=== PATIENT | male | born 1935 | race Caucasian/White ===

== ENCOUNTER 2018-03-14 13:23 | Inpatient (IN) | payer MEDICARE ==
[~2018-03-14] VITALS: Ht 182.9 cm; Wt 93.9 kg
[~2018-03-14 13:23] MED LIST: Z REMERON PO; Z.0.ATENOLOL25 MG PO; Z.0.ATIVAN1 MG PO; Z.0.CRESTOR40 MG PO; Z.0.ZESTRIL5 MG PO; Z.0.ZOLOFT100 MG PO; [UNRECOGNIZED DRUG - OTHER] PO
[2018-03-14] MEDS ORDERED: ASPIRIN 81 MG CHEW TAB PO ONE (14:00)
--- NOTE | 2018-03-14 15:19 | Diagnostic Imaging Report ---
EXAMINATION: CHEST SINGLE (NOT PORTABLE) INDICATION: Chest pain. COMPARISON: Chest radiograph 07/20/2011. FINDINGS: TUBES and LINES: None. LUNGS: Mild patchy bibasilar opacities. No evidence of pulmonary edema. PLEURA: No pleural effusion or pneumothorax. HEART AND MEDIASTINUM: The cardiomediastinal silhouette is unremarkable. BONES AND SOFT TISSUES: No acute osseous lesion. Soft tissues are unremarkable. UPPER ABDOMEN: No free air under the diaphragm. IMPRESSION: Mild patchy bibasilar opacities, likely atelectasis. No evidence of pneumothorax. Signed by: Dr. Viraj Cervantes MD on 03/14/2018 3:16 PM
[2018-03-14 16:06] LABS: EOSINOPHILS # (AUTO) 0.3 (0.0-0.4); EOSINOPHILS % 8.4 % (0.0-6.0); LYMPHOCYTES # (AUTO) 0.4 (1.0-3.2); LYMPHOCYTES % 14.1 % (18.0-39.1); MEAN CORPUSCULAR HEMOGLOBIN 31.7 pg (28-32); MEAN CORPUSCULAR HGB CONC 32.4 g/dL (31-35); MEAN CORPUSCULAR VOLUME 98.1 fL (81-99); MONOCYTES # (AUTO) 0.4 (0.2-0.8); MONOCYTES % 14.8 % (4.4-11.3); NEUTROPHILS # (AUTO) 1.8 (2.1-6.9); PLATELET COUNT 101 x10e3/uL (140-360); RED BLOOD COUNT 2.08 x10e6/uL (4.3-5.7); RED CELL DISTRIBUTION WIDTH 17.3 % (11.7-14.4)
[2018-03-14 16:13] LABS: HEMOGLOBIN 6.6 g/dL (14.0-18.0)
[2018-03-14 16:14] LABS: HEMATOCRIT 20.4 % (38.2-49.6)
[2018-03-14 16:17] LABS: BILIRUBIN,URINE NEGATIVE (NEGATIVE); CLARITY,URINE CLEAR (CLEAR); COLOR,URINE STRAW (YELLOW); KETONES,URINE NEGATIVE (NEGATIVE); LEUKOCYTE ESTERASE ,URINE NEGATIVE (NEGATIVE); NITRITE,URINE NEGATIVE (NEGATIVE); PROTEIN,URINE DIPSTICK 1+ (NEGATIVE); URINE UROBILINOGEN 0.2 mg/dL (0.2 - 1)
[2018-03-14 16:24] LABS: INR 1.06; PROTHROMBIN TIME 14.8 seconds (11.9-14.5)
[2018-03-14 16:25] LABS: PARTIAL THROMBOPLASTIN TIME 31.5 seconds (23.8-35.5)
[2018-03-14 16:32] LABS: ALBUMIN/GLOBULIN RATIO 1.1 (0.8-2.0); CALCIUM 8.7 mg/dL (8.4-10.2); CREATININE, SERUM 5.28 mg/dL (0.72-1.25)
[2018-03-14 16:39] LABS: CREATINE KINASE MB 2.6 ng/mL (0-5.0)
[2018-03-14 16:41] LABS: AMORPHOUS SEDIMENT,URINE FEW (FEW)
[2018-03-14] MEDS ORDERED: FUROSEMIDE INJ 10 MG/ML 2 ML VIAL IV ONE (16:45)
[2018-03-14] MEDS ORDERED: SODIUM CHLORIDE 0.9% 250ML 250 ML IV ONE (16:45)
--- NOTE | 2018-03-14 17:30 | NUR ---
RECEIVED REPORT FROM CHARGE NURSE TO ASSUME PTS CARE.
[2018-03-14] MEDS ORDERED: ONDANSETRON HCL INJ 2MG/ML 2ML 2 MG/ML VIAL IV PRN (17:45)
[2018-03-14] MEDS ORDERED: SODIUM BICARBONATE 8.4% SYRING 150 ML in DEXTROSE 5% 1,000 ML IV ONE (17:45)
[2018-03-14] MEDS ORDERED: FUROSEMIDE INJ 10 MG/ML 10 ML VIAL IV ONE (18:00)
--- OUTSIDE RECORDS SUMMARY | 2018-03-14 20:29 | XMS REPORT ---
Author Author [facility] Address Unknown Phone Unavailable Care Team Providers Care Meeting/Event Planner Name Role Phone Viry MYERS Unavailable Unavailable Problems This patient has no known problems. Allergies, Adverse Reactions, Alerts This patient has no known allergies or adverse reactions. Medications This patient has no known medications. Results Test Description Test Time Test Comments Text Results Atomic Results Result Comments CHEST SINGLE (NOT PORTABLE) 2018-03-14 15:13:00 [place] [address] Patient Name: CASSIDY KEBEDE MR #: [id number] : 1935 Age/Sex: 82/M Req #: [id number] Adm Physician: Ordered by: APSCUAL MYERS MD Report #: [id number] Location: ER Room/Bed: Procedure: [id number] DX/CHEST SINGLE (NOT PORTABLE) Exam Date: 03/14/18 Exam Time: 1419 REPORT STATUS: Signed EXAMINATION: CHEST SINGLE (NOT PORTABLE) INDICATION: Chest pain. COMPARISON: Chest radiograph 07/20/2011. FINDINGS: TUBES and LINES: None. LUNGS: Mild patchy bibasilar opacities. No evidence of pulmonary edema. PLEURA: No pleural effusion or pneumothorax. HEART AND MEDIASTINUM: The cardiomediastinal silhouette is unremarkable. BONES AND SOFT TISSUES: No acute osseous lesion. Soft tissues are unremarkable. UPPER ABDOMEN: No free air under the diaphragm. IMPRESSION: Mild patchy bibasilar opacities, likely atelectasis. No evidence of pneumothorax. Signed by: Dr. Danielle Boone MD on 03/14/2018 3:16 PM Dictated By: DANIELLE BOONE MD [id number] Transcribed By: RASHI on 03/14/18 [id number] COPY TO: PASCUAL MYERS MD
[2018-03-14] MEDS ORDERED: LOSARTAN POTASS25 MG PO (20:34)
[2018-03-14] MEDS ORDERED: LEVOCETIRIZINE D5 MG PO (20:34)
[2018-03-14] MEDS ORDERED: NIFEDIAC CC60 MG PO (20:34)
[2018-03-14] MEDS ORDERED: HYDRALAZINE HCL25 MG PO (20:35)
[2018-03-14] MEDS ORDERED: METOPROLOL SUCC25 MG PO (20:38)
[2018-03-14] MEDS ORDERED: FUROSEMIDE INJ 10 MG/ML 4 ML VIAL ONE (20:44)
--- NOTE | 2018-03-14 20:44 | NUR ---
[facility]LE ADF CONSULTANT INFORMED OF ELEVATED BP. ORDERED TO GIVE LASIX 100MG NOW.
[2018-03-14] MEDS ORDERED: FUROSEMIDE INJ 10 MG/ML 2 ML VIAL ONE (20:45)
[2018-03-14 20:47] LABS: EOSINOPHILS % (MANUAL) 10 % (0-7); LYMPHOCYTES % (MANUAL) 10 % (19-48); MONOCYTES % (MANUAL) 8 % (3.4-9.0); NEUTROPHILS % (MANUAL) 72 % (40-74)
[2018-03-14 20:56] LABS: HYPOCHROMASIA SLIGHT; PLATELET ESTIMATE ADEQUATE; PLATELET MORPHOLOGY COMMENT NORMAL; POIKILOCYTOSIS SLIGHT; RBC MORPHOLOGY COMMENT ABNORMAL
[2018-03-14 20:58] LABS: ANISOCYTOSIS MODERATE
[2018-03-14] MEDS ORDERED: SODIUM CHLORIDE 0.9% 250ML 250 ML ONE (20:59)
--- NOTE | 2018-03-14 22:15 | NUR ---
DR COLBY PAGED REGARDING BLOOD PRESSURE.
[2018-03-14] MEDS ORDERED: HYDRALAZINE HCL 25 MG TAB PO ONE (23:15)
[2018-03-14] MEDS ORDERED: NIFEDIPINE CR 30 MG TAB PO ONE (23:15)
[2018-03-15 06:18] LABS: EOSINOPHILS # (AUTO) 0.3 (0.0-0.4); EOSINOPHILS % 8.1 % (0.0-6.0); HEMATOCRIT 21.1 % (38.2-49.6); LYMPHOCYTES # (AUTO) 0.5 (1.0-3.2); LYMPHOCYTES % 14.3 % (18.0-39.1); MEAN CORPUSCULAR HEMOGLOBIN 31.4 pg (28-32); MEAN CORPUSCULAR HGB CONC 33.2 g/dL (31-35); MEAN CORPUSCULAR VOLUME 94.6 fL (81-99); MONOCYTES # (AUTO) 0.6 (0.2-0.8); MONOCYTES % 16.4 % (4.4-11.3); NEUTROPHILS % 59.7 % (38.7-80.0); PLATELET COUNT 69 x10e3/uL (140-360); RED BLOOD COUNT 2.23 x10e6/uL (4.3-5.7); RED CELL DISTRIBUTION WIDTH 16.2 % (11.7-14.4)
[2018-03-15 06:33] LABS: INR 1.13; PROTHROMBIN TIME 15.5 seconds (11.9-14.5)
[2018-03-15 06:34] LABS: PARTIAL THROMBOPLASTIN TIME 37.4 seconds (23.8-35.5)
[2018-03-15 06:44] LABS: ANION GAP 16.3 mmol/L (8-16); CALCIUM 8.3 mg/dL (8.4-10.2); CREATININE, SERUM 4.9 mg/dL (0.72-1.25); POTASSIUM 4.3 mmol/L (3.5-5.1)
[2018-03-15 07:29] LABS: EOSINOPHILS % (MANUAL) 10 % (0-7); LYMPHOCYTES % (MANUAL) 18 % (19-48); MONOCYTES % (MANUAL) 14 % (3.4-9.0); NEUTROPHILS % (MANUAL) 58 % (40-74); PLATELET ESTIMATE MARKEDLY DECREASED; RBC MORPHOLOGY COMMENT ABNORMAL
[2018-03-15] MEDS ORDERED: DEXTROSE 50% SYRINGE 50 ML IV PRN (07:30)
[2018-03-15] MEDS ORDERED: FUROSEMIDE INJ 10 MG/ML 2 ML VIAL IV ONE (10:00)
[2018-03-15] MEDS ORDERED: SODIUM CHLORIDE 0.9% 250ML 250 ML ONE ×2 (10:17→16:38)
[2018-03-15] MEDS: INSULIN REGULAR, HUMAN 100 UNIT/1 ML 3ML VIAL SQ SCH ×4 (10:17→20:57)
[2018-03-15] MEDS: METOPROLOL SUCCINATE 25 MG TAB XL PO SCH (10:28)
[2018-03-15] MEDS: HYDRALAZINE HCL 25 MG TAB PO SCH ×3 (10:28→21:04)
[2018-03-15] MEDS: NIFEDIPINE CR 30 MG TAB PO SCH (10:29)
--- NOTE | 2018-03-15 11:25 | NUR ---
2ND UNIT OF BLOOD STARTED. V.S.S.
[2018-03-15 11:51] LABS: PHOSPHORUS 6.8 MG/DL (2.3-4.7)
[2018-03-15 12:01] LABS: % IRON SATURATION 70 % (15-50); IRON 157 ug/dL (65-175); TOTAL IRON BINDING CAPACITY 224 ug/dL (261-478); TRANSFERRIN 160 mg/dL (174-364)
[2018-03-15 12:13] LABS: FERRITIN 435.43 ng/mL (21.81-274.66); THYROID STIMULATING HORMONE 2.636 uIU/mL (0.350-4.940)
--- NOTE | 2018-03-15 12:33 | History and Physical ---
PRIMARY CARE PHYSICIAN: Dr. Pam Andrade. CHIEF COMPLAINT 1. Shortness of breath both at rest and increased in intensity on exertion. 2. Chronic kidney disease with acute kidney failure. 3. Uremia. HISTORY: Patient is an 82-year-old male who has history of prostate disease. The patient has prostate enlargement. He had multiple procedures, the last was TURP procedure with Dr. Marv Hernandez. Patient came in with urinary retention, most likely per patient that when they put in the Savage catheter, the patient had significant urine output. Patient's BUN and creatinine on admission was 107 and 5.3 respectively with a hemoglobin of 6.6. Patient did receive blood transfusion. He is feeling better. Shortness of breath improved as patient remained in the emergency room awaiting for a medical bed. Patient's hemoglobin and hematocrit today is 7 and 21.1. Patient is otherwise stable. Blood transfusion this morning and a BUN and creatinine of 101 and 4.9 respectively. The patient does have a Savage catheter in place. He is comfortable, not having any pain at this time. PAST MEDICAL HISTORY: Chronic kidney disease, stage not known at this time. Workup in progress. Diabetes type 2, on glipizide and metformin. Hypertension, osteoarthritis, depression. PAST SURGICAL HISTORY: Prostate surgery, TURP procedure. SOCIAL HISTORY: Patient lives with his . He does not smoke or use alcohol. There is no recreational drug use. ALLERGIES: NO KNOWN ALLERGIES. HOME MEDICATIONS: Glipizide, metformin, hydralazine, Zyrtec, lorazepam, losartan, metoprolol, Remeron, nifedipine, and Zoloft. PHYSICAL EXAMINATION VITAL SIGNS: Temperature is 98, blood pressure 166/70, pulse rate 72, respirations 18. GENERAL: Patient is in no acute distress. He is awake. HEENT: Normocephalic, atraumatic. Sclerae anicteric. NECK: Supple grossly. PULMONARY: Clear. CARDIOVASCULAR: Regular rate and rhythm. ABDOMEN: Soft and obese. Savage catheter in place. EXTREMITIES: No cyanosis or edema. NEUROLOGIC: No focal deficit. LABORATORY: Sodium is 135, potassium 5, chloride 113, bicarb 9, BUN is 107, creatinine is 5.3, glucose is 197. WBC is 2.9, hemoglobin 6.6, hematocrit 20.4, platelets 101. IMPRESSION 1. Acute kidney injury on chronic kidney disease. 2. Symptomatic anemia. Hemoglobin and hematocrit of 6.6 and 20.4. 3. Metabolic acidosis. Combination of problems as mentioned above. 4. Pancytopenia with low white blood count, platelets, hemoglobin and hematocrit. 5. History of transurethral resection of prostate and enlarged prostate. 6. Possible urinary retention. PLAN: Blood transfusion. Blood pressure control. Home medication with adjustment. Stop the metformin and glipizide for now. Insulin sliding scale coverage. Repeated lab workup. We will monitor the patient closely. Job#: [id number] LPA cc:PAM ANDRADE MD
[2018-03-15 12:36] LABS: FOLATE 18.3 ng/mL (7.0-15.4)
--- NOTE | 2018-03-15 12:43 | Consultation ---
DATE OF CONSULTATION: March 15, 2018 REQUESTING PHYSICIAN: Dr. Ge Younger. REASON FOR CONSULTATION: Acute kidney injury. Thank you for allowing us to participate in Mr. Slaughter's care. This is an 82-year-old male with history of CKD, presumed nephrosclerosis and diabetic end-organ damage. Baseline creatinine is 1.82 to 1.9, which has been relatively stable for several months at this point, came with worsening dyspnea, found to have elevated creatinine in the 5 range. Chest x-ray was clear. His hemoglobin was markedly decreased at 6.6. He was hypertensive at admission. He is feeling better since getting blood transfusion in the ER. PAST MEDICAL HISTORY: CKD 3, type 2 diabetes and hypertension, end-organ damage, baseline creatinine 1.8 to 1.9, dyslipidemia. HOME MEDICATIONS: Glipizide/metformin 5/500, hydralazine 25 mg t.i.d., levocetirizine, lorazepam 1 mg b.i.d., losartan 100 mg a day, metoprolol 25 mg a day, Remeron 30 mg at bedtime, nifedipine 60 a day, and sertraline 100 mg a day. SOCIAL HISTORY: Denies any alcohol or smoke. FAMILY HISTORY: No kidney problems or hypertension presently. REVIEW OF SYSTEMS CONSTITUTIONAL: No fever or chills. He felt weak. GI: Denying any blood loss in the stools or any hematemesis. CARDIAC: Denying angina or syncope. RESPIRATORY: Denying cough or hemoptysis. He was dyspneic that is improving. : Denying any hematuria, dysuria, or trouble voiding. Rest of review is negative. PHYSICAL EXAMINATION GENERAL: Lying in bed, no distress. VITAL SIGNS: Temperature is 98, pulse 74, blood pressure 153/72. HEENT: Grossly atraumatic. NECK: Neck veins are flat. CHEST: Clear. Bilateral breath sounds are equal. CARDIAC: Normal heart tones. Rhythm sounds regular. ABDOMEN: Soft. There is guarding, rigidity, or peritoneal signs. NEURO: Alert, appropriate. SKIN: Warm and dry. LABS: Sodium 139, K 4.3, serum CO2 of 13, creatinine is 4.9 down from 5.2, BUN is coming down. Chest x-ray is clear other than minimal atelectasis. ASSESSMENT 1. Acute kidney injury probably prerenal azotemia from the blood loss/decreased hemoglobin UNDERLYING chronic kidney disease. 2. Anemia appears normocytic. 3. Metabolic acidosis from decreased glomerular filtration rate. 4. Consider obstruction if he does have a Savage and voiding. PLAN 1. From renal standpoint, started on IV bicarbonate. Continue the same. 2. We will transfuse 2 more units of packed cells. 3. Hold the angiotensin receptor carie. 4. Check renal ultrasound and urine studies. 5. Check iron studies. 6. No emergent need for dialysis. 1. Will follow along with you. Job#: [id number] BALJINDER GROVES
--- NOTE | 2018-03-15 13:51 | NUR ---
BLOOD TX COMPLETE
[2018-03-15 14:44] VITALS: BP 144/80
[2018-03-15 15:00] VITALS: BP 154/70
[2018-03-15 15:28] VITALS: BP 154/70
[2018-03-15] MEDS ORDERED: PNEUMOCOCCAL VACCINE POLYVALENT 23 MCG/0.5 ML VIAL IM NR (16:00)
[2018-03-15] MEDS ORDERED: FUROSEMIDE INJ 10 MG/ML 2 ML VIAL ONE (16:38)
[2018-03-15 19:00] VITALS: BP 165/80
[2018-03-15 22:04] VITALS: BP 170/77
[2018-03-15 23:47] VITALS: BP 151/70
[2018-03-16] VITALS (8 sets, daily range): BP systolic 138–178; BP diastolic 70–84
[2018-03-16 05:36] LABS: BASOPHILS % 0.1 % (0.0-1.0); EOSINOPHILS # (AUTO) 0.3 (0.0-0.4); EOSINOPHILS % 4.2 % (0.0-6.0); HEMATOCRIT 29.3 % (38.2-49.6); HEMOGLOBIN 10.1 g/dL (14.0-18.0); LYMPHOCYTES # (AUTO) 0.5 (1.0-3.2); LYMPHOCYTES % 7.3 % (18.0-39.1); MEAN CORPUSCULAR HEMOGLOBIN 31.4 pg (28-32); MEAN CORPUSCULAR HGB CONC 34.5 g/dL (31-35); MONOCYTES # (AUTO) 1.3 (0.2-0.8); MONOCYTES % 18.1 % (4.4-11.3); NEUTROPHILS # (AUTO) 4.9 (2.1-6.9); NEUTROPHILS % 69.7 % (38.7-80.0); PLATELET COUNT 62 x10e3/uL (140-360); RED BLOOD COUNT 3.22 x10e6/uL (4.3-5.7); RED CELL DISTRIBUTION WIDTH 15.5 % (11.7-14.4)
[2018-03-16 05:53] LABS: ANION GAP 16.7 mmol/L (8-16); CALCIUM 8.3 mg/dL (8.4-10.2); CREATININE, SERUM 4.56 mg/dL (0.72-1.25); POTASSIUM 3.7 mmol/L (3.5-5.1)
[2018-03-16] MEDS: INSULIN REGULAR, HUMAN 100 UNIT/1 ML 3ML VIAL SQ SCH ×4 (07:30→20:43)
[2018-03-16 08:49] LABS: EOSINOPHILS % (MANUAL) 5 % (0-7); LYMPHOCYTES % (MANUAL) 7 % (19-48); MONOCYTES % (MANUAL) 10 % (3.4-9.0); NEUTROPHILS % (MANUAL) 78 % (40-74); PLATELET ESTIMATE MODERATELY DECREASED; PLATELET MORPHOLOGY COMMENT NORMAL; RBC MORPHOLOGY COMMENT NORMAL
[2018-03-16] MEDS: HYDRALAZINE HCL 25 MG TAB PO SCH ×3 (09:30→20:44)
[2018-03-16] MEDS: METOPROLOL SUCCINATE 25 MG TAB XL PO SCH (09:30)
[2018-03-16] MEDS: NIFEDIPINE CR 30 MG TAB PO SCH (09:30)
--- NOTE | 2018-03-16 18:38 | Progress Note ---
DATE: March 16, 2018 NEPHROLOGY PROGRESS NOTE SUBJECTIVE: Mr. Slaughter feels better today. He had no specific complaints except for his anxiety as he has not received his anxiolytic and antidepressant yet. Otherwise, he denied any shortness of breath, chest pain, fever, chills, masses, rashes, abdominal pain, nausea, vomiting, diarrhea, or constipation. He remains with Savage catheter. PHYSICAL EXAMINATION GENERAL: Alert, oriented, adult, obese male in no acute distress. VITAL SIGNS: Blood pressure 178/84, heart rate 78 per minute. LUNGS: Bilaterally clear to auscultation. HEART: Normal heart sounds. No additional sounds. ABDOMEN: Soft, nontender. No organomegaly. EXTREMITIES: No cyanosis, clubbing, or edema. LABORATORY FINDINGS: Noted and reviewed. Sodium 139, potassium 3.7, chloride 112, carbon dioxide 14, BUN 94, creatinine 4.56, anion gap 16.7. ASSESSMENT AND PLAN 1. Acute kidney injury on chronic kidney disease secondary to obstructive uropathy. The patient is displaying postobstructive diuresis. His BUN and creatinine are gradually improving. 2. Obstructive uropathy. The patient may possibly go home with Savage catheter to follow up with his outpatient urologist and/or urology consultation can be obtained as per the primary care physician. 3. Metabolic acidosis secondary to acute kidney injury, improving. Continue intravenous fluids. 4. Anemia, [id number]. Hematocrit and hemoglobin have improved. 5. Disposition: We will follow this patient with you. I have discussed my evaluation, assessment, and plan of care with the patient and all details in the presence of his nurse. All questions were answered to their satisfaction until they had none. Job#: [id number] LPA
[2018-03-16] MEDS: LORAZEPAM 1 MG TAB PO SCH (20:43)
[2018-03-16] MEDS: MIRTAZAPINE 15 MG TAB PO SCH (20:43)
[2018-03-17] VITALS (11 sets, daily range): BP systolic 138–184; BP diastolic 64–85
--- NOTE | 2018-03-17 07:20 | NUR ---
Report given to upcoming RN Krista,walking round done.
[2018-03-17] MEDS: METOPROLOL SUCCINATE 25 MG TAB XL PO SCH (09:02)
[2018-03-17] MEDS: HYDRALAZINE HCL 25 MG TAB PO SCH ×3 (09:02→21:42)
[2018-03-17] MEDS: SERTRALINE HCL 100 MG TAB PO SCH (09:02)
[2018-03-17] MEDS: NIFEDIPINE CR 30 MG TAB PO SCH (09:03)
[2018-03-17] MEDS: LORAZEPAM 1 MG TAB PO SCH ×2 (09:03→21:42)
[2018-03-17] MEDS: INSULIN REGULAR, HUMAN 100 UNIT/1 ML 3ML VIAL SQ SCH ×4 (09:04→21:46)
--- NOTE | 2018-03-17 13:12 | NUR ---
DR. ELIE PARTIDA CALLED BACK FOR CONSULT, MADE HIM AWARE OF BUN AND CREATININE LEVELS , PER DR. PARTIDA PATIENT IS A PATIENT OF HIS AND HAS NOT FOLLOW ED UP IN HIS OFFICE SINCE JULY.
--- NOTE | 2018-03-17 14:05 | NUR ---
RECEIVED PATIENT FROM PACU PATIENT IS ALERT AND AWAKE ORIENTED X3, VERBALIZING NEEDS, CHECKED SURGICAL SITE TO SCROTAL ARE PATIENT HAS STERI STRIPS IN PLACE WITH, SCANT BLEEDING. 4X4 GAUZES IN PLACE WITH MESH PANTIES. NO S/S OF DISTRESS.
--- NOTE | 2018-03-17 15:12 | NUR ---
Nutrition Screen Note RD Recommendation for Physician: -Add ADA to renal diet as medically appropriate (hx of T2DM) Notified EMELY Velasco Plan of Care: RD following, monitoring for tolerance and adequacy Nutrition reason for involvement: Nutrition Risk Trigger MST Primary Diagnose(s): 1.Acute kidney injury on chronic kidney disease 2.Obstructive uropathy 3.Metabolic acidosis secondary to acute kidney injury, improving PMH: prostate disease, chronic kidney disease, Diabetes type 2, hypertension, osteoarthritis, depression Ht: 72in Wt: 190.04lb BMI: 25.8kg/m2 IBW: 178lb RD Assessment: (03/17) Chart reviewed. Labs and meds reviewed. 82yo M, who is admitted for SOB. Visited pt in the room. Pt reports good appetite. No GI complains noted. LBM 03/16, normal per pt. Pt denies any chewing or swallowing difficulty. No recent weight loss reported. Will continue to monitor and follow. Current Diet: Renal diet Malnutrition Evaluation (03/17/18) The patient does not meet criteria for a specified degree of malnutrition at this time. Will re-evaluate at follow-up as appropriate. Diet Education Needs Assessment: Diet education not indicated. Nutrition Care Level: low Signed: Magdalena Guzman, MS, RD, LD
--- NOTE | 2018-03-17 15:32 | NUR ---
WOUND CARE CONSULTATION - EVAL - RE: INCONTINENCE RELATED EXCORIATION Patient is a 82 year-old male admitted for SOB, CKD, ARF, Urinary Retention, Anemia, Metabolic Acidosis. He has a history of Prostate disease, TURP procedure, DM type 2, HTN, Osterarthritis, and depression. Upon head to toe assessment no wounds discovered. Patient able to ambulate and turns self. Mild erythema to the perirectal region possibly from gastric content irritation. Patient was clean and dry at time of visit but no barrier cream noted on patient. WBC: 6.98 HGB: 10.1 HCT: 29.3 Glucose: 166 RECOMMENDATION: 1. After each bowel movement wash perineal and perirectal area with mild soap and water. Pat area dry thoroughly then apply Lantiseptic Cream BID and PRN Soiling. 2. Continue AZAEL Air Mattress Use. Thank you for the consultation. Addendum: 03/17/18 at 1539 by Moshe Clarke RN Amended: Links added.
[2018-03-17] MEDS ORDERED: LANOLIN 4.5 OZ OINT TP PRN (16:00)
--- NOTE | 2018-03-17 16:31 | NUR ---
Called Dr. Lyn Watt to informed him Dr. Ora Hernandez, had called back on the consult for Mr. Slaugther, Dr. Hernandez give me orders not to remove the Savage, also made him aware per Dr. Hernandez the patient was suppose to follow up in the Dr. Hernandez's office back in July, but he is a non-compliant, he missed his appointment.
[2018-03-17] MEDS: LANOLIN 4.5 OZ OINT TP SCH (16:56)
--- NOTE | 2018-03-17 17:00 | Diagnostic Imaging Report ---
EXAM: Renal Ultrasound INDICATION: ARF. COMPARISON: CT abdomen and pelvis without contrast 02/15/2013. TECHNIQUE: Transverse and longitudinal images of the kidneys and bladder were obtained. FINDINGS: Right Kidney: Length: Measures 9.6 x 4.8 x 5.0 cm Appearance: Normal echogenicity. Collecting system: No hydronephrosis Stones: None Cyst/Mass: No evidence of solid mass. Multiple simple appearing right-sided renal cysts, largest measuring 4.1 cm in the midpole. Left Kidney: Length: Measures 11.0 x 4.2 x 5.0 cm Appearance: Normal echogenicity. Collecting system: No hydronephrosis Stones: None Cyst/Mass: No evidence of solid mass. There are two predominately anechoic appearing left-sided renal cysts in the midpole measuring up to 1.6 cm and 1.8 cm. Bladder: Decompressed secondary to Savage catheter. Incompletely evaluated. IMPRESSION: No evidence of hydronephrosis. Bilateral simple appearing renal cysts. Signed by: Dr. Viraj Cervantes MD on 03/17/2018 4:57 PM
[2018-03-17] MEDS: MIRTAZAPINE 15 MG TAB PO SCH (21:42)
[2018-03-18] VITALS (7 sets, daily range): BP systolic 125–165; BP diastolic 62–78
[2018-03-18 05:31] LABS: ANION GAP 16.2 mmol/L (8-16); CALCIUM 8.8 mg/dL (8.4-10.2); CREATININE, SERUM 4.67 mg/dL (0.72-1.25); POTASSIUM 4.2 mmol/L (3.5-5.1)
[2018-03-18 08:19] LABS: BASOPHILS % 0.1 % (0.0-1.0); EOSINOPHILS # (AUTO) 0.4 (0.0-0.4); EOSINOPHILS % 4.5 % (0.0-6.0); HEMATOCRIT 30.7 % (38.2-49.6); HEMOGLOBIN 10.1 g/dL (14.0-18.0); LYMPHOCYTES # (AUTO) 0.7 (1.0-3.2); LYMPHOCYTES % 7.5 % (18.0-39.1); MEAN CORPUSCULAR HEMOGLOBIN 31.1 pg (28-32); MEAN CORPUSCULAR HGB CONC 32.9 g/dL (31-35); MEAN CORPUSCULAR VOLUME 94.5 fL (81-99); MONOCYTES # (AUTO) 1.7 (0.2-0.8); MONOCYTES % 17.5 % (4.4-11.3); NEUTROPHILS # (AUTO) 6.8 (2.1-6.9); NEUTROPHILS % 69.8 % (38.7-80.0); PLATELET COUNT 75 x10e3/uL (140-360); RED BLOOD COUNT 3.25 x10e6/uL (4.3-5.7); RED CELL DISTRIBUTION WIDTH 15.9 % (11.7-14.4)
[2018-03-18] MEDS: LORAZEPAM 1 MG TAB PO SCH ×2 (08:36→20:57)
[2018-03-18] MEDS: SERTRALINE HCL 100 MG TAB PO SCH (08:36)
[2018-03-18] MEDS: LANOLIN 4.5 OZ OINT TP SCH ×2 (08:36→17:00)
[2018-03-18] MEDS: INSULIN REGULAR, HUMAN 100 UNIT/1 ML 3ML VIAL SQ SCH ×4 (08:44→21:42)
[2018-03-18] MEDS: NIFEDIPINE CR 30 MG TAB PO SCH (08:45)
[2018-03-18] MEDS: HYDRALAZINE HCL 25 MG TAB PO SCH ×3 (08:45→20:57)
[2018-03-18] MEDS: METOPROLOL SUCCINATE 25 MG TAB XL PO SCH (08:45)
--- NOTE | 2018-03-18 10:22 | NUR ---
LANTISEPTIC OINTMENT, NOT AVAILABLE, WILL BE IN UNTIL 03/19/17 PER GALINA IN PHARMACY. APPLYING BARRIER CREAM TO BUTTOCKS REDNESS DUE TO STOOL INCONTINENCE.
--- NOTE | 2018-03-18 11:20 | NUR ---
DR. Ora PARTIDA IN TO SEE PATIENT RECEIVED ORDERS TO D/C [place] WHEN PATIENT VOIDS COLLECT URINE AND DO A POST VOID RESIDUAL CALL DR. PARTIDA WITH THE RESULTS.
--- NOTE | 2018-03-18 12:00 | NUR ---
PLACED CALL TO RENAL DR. PORTILLO IS SUGAR MILL WORKER FOR DR. IYER WAITING FOR CALL BACK
--- NOTE | 2018-03-18 12:17 | NUR ---
DR. Louie PORTILLO CALLED BACK MADE AWARE PATIENT'S ELEVATED BLOOD PRESSURE, 165/77 HR 82, READ TO MD., BASIC METABOLIC PANEL VALUES, RECEIVED ORDERS TO ADMINISTER 1/2 NORMAL SALINE WITH 75MEQ BICARB TO INFUSE @75CC/HR, X 1 LITER, GIVE HYDRALAZINE 5 MG IVP, EVERY 6 HOURS NEEDED FOR SYSTOLIC BLOOD PRESSURE > 170. MAY GIVE A 1 TIME DOSE OF HYDRALAZINE 5MG IVP, NOW AND INCREASE HIS HYDRALAZINE PO TO 50MG THREE TIMES A DAY. TELEPHONE ORDER READ BACK.
[2018-03-18] MEDS ORDERED: SODIUM BICARBONATE 8.4% 75 ML in SODIUM CHLORIDE 0.45% 1,000 ML IV ONE ×2 (12:30→13:45)
[2018-03-18] MEDS ORDERED: HYDRALAZINE HCL 20 MG/ML VIAL IV PRN (12:30)
--- NOTE | 2018-03-18 12:31 | Consultation ---
DATE OF CONSULTATION: March 18, 2018 CONSULTATION FOR: Dr. Watt and Dr. Roly Wall. REASON FOR CONSULTATION: Renal failure, urinary retention. An 82-year-old male whom I have seen in 2018 for an enlarged prostate. The patient had been taking Proscar and Flomax and when we saw him evaluation confirmed that the patient had high residuals of over 200 with severely obstructive flow. The evaluation revealed on cystoscopy that patient had an enlarged trilobar hyperplasia. We also found that he had left lobe overgrowth into the urethra. He had a penile stricture that had to be dilated in the office that we would proceed on with evaluation to improve his flow by doing something to the prostate. At that time obtaining surgical clearance, Dr. Sotelo did not want him off his blood thinner for more than 5 days; so, therefore a urolith was planned. At that time, the patient went to the hospital, had a urolith done, had severe bleeding that needed to be taken back to surgery where fulguration was performed. The patient was seen in the office on followup. Repeat cystoscopy revealed that there was no further bleeding or clots in the bladder. There was some necrotic tissue around the prostate. This was in August 02, 2017. He was given a return appointment in 2 months for a flow test and a postvoid residual and the patient did not return to the office. Now, the history over the last couple months, he has had urge incontinence, dribbling, and small flow with frequency, probably was doing overflow which the patient apparently fell that it would be get better and never came back to see me or check with me. BUN at the present time is 94, creatinine of 4.56. Today, his BUN is 91 and his creatinine is 4.67. He has chronic renal failure now because of chronic obstruction. The patient had a ultrasound done on March 17, 2018 that showed no evidence of hydronephrosis. This may very well mean that his renal failure is not related to any acute obstruction; otherwise, he would have had hydronephrosis a that time. So, this may very well be something that cannot be repaired. We will be evaluating him when he is here. I will probably remove his catheter and check his postvoid residual while he is here. I do not believe at the present time after seeing the ultrasound that this is urinary tract obstruction because there was no hydronephrosis when the Savage had been placed in at that time when the patient came into the hospital. Job#: [id number] MICHAEL cc:FREDERICK WALL MD
[2018-03-18] MEDS ORDERED: HYDRALAZINE HCL 20 MG/ML VIAL IV ONE (13:00)
--- NOTE | 2018-03-18 17:10 | NUR ---
PLACED CALL TO DR. Ora PARTIDA NOTIFIED HIM OF PATIENT'S POST VOID RESIDUAL > 20ML AND AT 1700 GREATER THAN 13CC. RECEIVED ORDERS TO DO POST VOID RESIDUAL TOMORROW MORNING, ORDER IS IN MD NURSING COMMUNICATION.
--- NOTE | 2018-03-18 17:45 | NUR ---
TRANSFERRED PATIENT TO ROOM 205 NURSE SHAHIDA BASS HANDOFF REPORT, MADE AWARE DO POST VOID RESIDUAL IN THE MORNING WHEN PATIENT VOIDS, VERBALIZED UNDERSTANDING.
--- NOTE | 2018-03-18 18:08 | NUR ---
RCD PT FROM IMCU BY WHEEL CHAIR PT IS ALERT AND ORIENTED VITALS CHECKED PT RESTING ON BED BED LOW AND LOCKED CALL LIGHT IN REACH
--- NOTE | 2018-03-18 18:42 | NUR ---
PT RESTING ON BED BED SIDE REPORT GIVEN TO ONCOMING NURSE
[2018-03-18] MEDS: MIRTAZAPINE 15 MG TAB PO SCH (20:57)
[2018-03-19] VITALS (8 sets, daily range): BP systolic 137–164; BP diastolic 66–72
--- NOTE | 2018-03-19 06:44 | NUR ---
PVR 97 ml. Placed call to Dr. Hernandez.
[2018-03-19] MEDS ORDERED: TAMSULOSIN HCL 0.4 MG CAP PO NR (07:00)
--- NOTE | 2018-03-19 07:05 | NUR ---
RCD PT AT BED PT IS ALERT AND ORIENTED PT RESTING ON BED FAMILY AT BED SIDE BED LOW AND LOCKED CALL LIGHT IN REACH
[2018-03-19] MEDS: INSULIN REGULAR, HUMAN 100 UNIT/1 ML 3ML VIAL SQ SCH ×4 (07:30→21:47)
[2018-03-19] MEDS: METOPROLOL SUCCINATE 25 MG TAB XL PO SCH (09:00)
[2018-03-19] MEDS: NIFEDIPINE CR 30 MG TAB PO SCH (09:00)
[2018-03-19] MEDS: SERTRALINE HCL 100 MG TAB PO SCH (09:00)
[2018-03-19] MEDS: LORAZEPAM 1 MG TAB PO SCH ×2 (09:00→19:54)
[2018-03-19] MEDS: LANOLIN 4.5 OZ OINT TP SCH ×2 (09:00→17:00)
[2018-03-19] MEDS: HYDRALAZINE HCL 25 MG TAB PO SCH ×3 (09:00→19:54)
--- NOTE | 2018-03-19 11:39 | NUR ---
Sql Database Administrator to bedside to discuss plan of care with patient/family. CM/SW role and care transitions discussed. Anticipated discharge plan discussed along with duration of care. CM/SW discussed patients right to make decisions in care. CM/SW work hours given. Pt is hard of hearing and accidentally showed with his hearing aids in. Asked CM to speak to his who is at bedside. Patient lives: with , Leona Slaughter Admit/Transfer: thru ED, from home POA/Emergency contact: Leona Slaughter [phone] Current/Previous Home Health: none PCP/Follow-up Care: Dr. Alvarenga Current/Previous DME: none; pt is independent and still drives Other Services: none Employment Status: retired Areas of Concerns: NIMA/urinary retention Referral Needs: none Education Needs: medical management IMM/COSME given and signed (if applicable): none at this time Goal for discharge: home; will provide transportation. CM/SW left business card at the bedside with contact information. Name and number was also written on the patients whiteboard. Patient verbalized understanding of discussion. CM will follow-up with ongoing discharge and transition of care needs.
--- NOTE | 2018-03-19 14:00 | NUR ---
RESIDUAL URINE 19 ML PAGED AND NOTIFIED DR SHRESTHA OFFICE NURSE SHERRI
[2018-03-19] MEDS: SODIUM BICARBONATE 8.4% SYRING 100 ML in DEXTROSE 5% 1,000 ML IV SCH (14:29)
--- NOTE | 2018-03-19 18:40 | NUR ---
PT RESTING ON BED BED SIDE REPORT GIVEN TO ONCOMING NURSE
[2018-03-19] MEDS: TAMSULOSIN HCL 0.4 MG CAP PO SCH (19:54)
[2018-03-19] MEDS: MIRTAZAPINE 15 MG TAB PO SCH (19:54)
[2018-03-20] VITALS (8 sets, daily range): BP systolic 118–158; BP diastolic 57–74
[2018-03-20 05:26] LABS: ALBUMIN 3.3 g/dL (3.5-5.0); ALBUMIN/GLOBULIN RATIO 1.1 (0.8-2.0); ALKALINE PHOSPHATASE 73 IU/L (40-150); ANION GAP 17.4 mmol/L (8-16); BLOOD UREA NITROGEN 104 mg/dL (7-26); BUN/CREATININE RATIO 21 (6-25); CALCIUM 8.7 mg/dL (8.4-10.2); CARBON DIOXIDE 16 mmol/L (22-29); CHLORIDE 103 mmol/L (98-107); CREATININE, SERUM 4.88 mg/dL (0.72-1.25); EST GLOMERULAR FILTRATION RATE 11 ML/MIN (60-); GLUCOSE 224 mg/dL (74-118); POTASSIUM 3.4 mmol/L (3.5-5.1); SODIUM 133 mmol/L (136-145)
[2018-03-20 05:27] LABS: ALANINE AMINOTRANSFERASE < 6 IU/L (0-55)
[2018-03-20] MEDS: SODIUM BICARBONATE 8.4% SYRING 100 ML in DEXTROSE 5% 1,000 ML IV SCH ×2 (06:12→13:00)
[2018-03-20] MEDS: INSULIN REGULAR, HUMAN 100 UNIT/1 ML 3ML VIAL SQ SCH ×4 (07:30→21:00)
[2018-03-20] MEDS: LANOLIN 4.5 OZ OINT TP SCH ×3 (09:00→17:00)
[2018-03-20] MEDS: LORAZEPAM 1 MG TAB PO SCH ×2 (09:19→21:32)
[2018-03-20] MEDS: NIFEDIPINE CR 30 MG TAB PO SCH (09:19)
[2018-03-20] MEDS: HYDRALAZINE HCL 25 MG TAB PO SCH ×3 (09:19→21:32)
[2018-03-20] MEDS: METOPROLOL SUCCINATE 25 MG TAB XL PO SCH (09:20)
[2018-03-20] MEDS: SERTRALINE HCL 100 MG TAB PO SCH (09:21)
--- NOTE | 2018-03-20 10:44 | Progress Note ---
DATE: March 20, 2018 Today the patient is doing well, although his lab work does not look as good with a BUN of 104. He has been emptying his bladder. His PVR has been less than 50. We will check PVR again tomorrow. We will discuss that with the nurses, and they will let me know. Urine culture that I ordered revealed an enterobacter infection sensitive to Cipro. I will start him on Cipro 250 b.i.d. We will recheck his urine culture in 72 hours. I will make that order. In the meantime, I will recheck the PVR again tomorrow. So far, his ultrasound has failed to show any long-lasting hydronephrosis that may account for his elevation of his BUN and creatinine. PVR has been small, although he has an infection. I will check PVR again today myself. If his PVR is low, his loss of renal function is not due to any chronic retention producing chronic hydronephrosis, which he does not have on ultrasound when he was admitted. Job#: [id number]
--- NOTE | 2018-03-20 12:14 | Progress Note ---
DATE: March 20, 2018 MEDICINE PROGRESS NOTE SUBJECTIVE: I am covering for Dr. Watt. Patient was admitted for underlying acute kidney injury. There was some concern that he may have some hydronephrosis. I discussed this case with urology, Dr. Hernandez, and he is not convinced that the patient has any hydronephrosis. He did have a residual urine on the bladder scan, about 44 mL. He does have a UTI and he is being treated with oral Cipro. Currently he is doing well. No overnight events. Nephrology has been consulted. VITAL SIGNS: Temperature is 97.8, pulse 93, respiratory rate is 18, blood pressure 150/68, pulse ox 96% on room air. LAB FINDINGS: White count is 9.8, hemoglobin 10, hematocrit 31, platelets of 75. His coagulation: PT 15.5, PTT 37. Chemistry: Sodium 138, potassium 3.4, chloride 102, bicarb is 15, anion gap is 17, BUN is 104, creatinine 4.8, glucose is 224, calcium is 8.7. His iron saturation was 70%. Troponins were negative. His PTH is 138. Stool occult was negative. UA was reviewed. MICROBIOLOGY: Urine culture consistent with enterobacter which is sensitive to Cipro. PHYSICAL EXAMINATION GENERAL: Not in acute distress. Alert and oriented x3. Cooperative on examination. HEENT: Head is normocephalic and atraumatic. Eyes: Pupils equal, round and reactive to light bilaterally. Extraocular movements intact bilaterally. NECK: Supple. Good range of motion. Throat with no evidence of any erythema or exudates in the posterior pharynx. Has poor dentition. PULMONARY: Clear to auscultation bilaterally. No wheezing. No rales. No rhonchi. No crackles appreciated. CARDIOVASCULAR: Positive S1 and S2. No murmurs, rubs or gallops appreciated. ABDOMEN: Soft, nondistended and nontender to palpation. Bowel sounds present. MUSCULOSKELETAL: Strength is 5/5 throughout. No evidence of any musculoskeletal deficit on examination. No weakness appreciated. NEUROLOGICAL: Cranial nerves II through XII are grossly intact. No evidence of any neurological deficits on exam. SKIN: Intact. Warm to touch. Good cap refill. PSYCHIATRIC: Normal affect and mood. EXTREMITIES: No edema. Good range of motion throughout. IMPRESSIONS 1. Acute kidney injury on chronic kidney disease stage 4. 2. Symptomatic anemia, status post blood transfusion. 3. Metabolic acidosis secondary to renal failure. 4. Pancytopenia. 5. History of transurethral resection of the prostate, enlarged prostate. PLAN: At this time, I spoke with urology. There is no further workup needed by them. Nephrology is following closely with the acute kidney injury, the etiology is unknown at this time. His renal ultrasound has been reviewed. Will get a.m. labs. Continue with his antihypertensive medications. Insulin sliding scale. Patient has been started on oral Cipro 200 mg p.o. b.i.d. for underlying UTI. Job#: [id number] IRWIN
[2018-03-20] MEDS ORDERED: POTASSIUM CHLORIDE 20 MEQ TAB CR PO STA (12:36)
[2018-03-20 15:16] LABS: ANION GAP 16.6 mmol/L (8-16); CALCIUM 8.7 mg/dL (8.4-10.2); CREATININE, SERUM 4.64 mg/dL (0.72-1.25); POTASSIUM 3.6 mmol/L (3.5-5.1)
[2018-03-20] MEDS: CIPROFLOXACIN 250 MG TAB PO SCH (17:09)
[2018-03-20] MEDS: SODIUM BICARBONATE 650 MG TAB PO SCH (17:09)
[2018-03-20] MEDS: TAMSULOSIN HCL 0.4 MG CAP PO SCH (21:32)
[2018-03-20] MEDS: MIRTAZAPINE 15 MG TAB PO SCH (21:32)
[2018-03-21] VITALS (7 sets, daily range): BP systolic 109–151; BP diastolic 52–73
[2018-03-21] MEDS: SODIUM BICARBONATE 8.4% SYRING 100 ML in DEXTROSE 5% 1,000 ML IV SCH (04:30)
[2018-03-21 05:02] LABS: BASOPHILS % 0.1 % (0.0-1.0); EOSINOPHILS # (AUTO) 0.3 (0.0-0.4); EOSINOPHILS % 4.9 % (0.0-6.0); HEMATOCRIT 26.2 % (38.2-49.6); HEMOGLOBIN 8.7 g/dL (14.0-18.0); LYMPHOCYTES # (AUTO) 0.4 (1.0-3.2); LYMPHOCYTES % 5.8 % (18.0-39.1); MEAN CORPUSCULAR HGB CONC 33.2 g/dL (31-35); MEAN CORPUSCULAR VOLUME 93.2 fL (81-99); MONOCYTES # (AUTO) 1.2 (0.2-0.8); MONOCYTES % 17.5 % (4.4-11.3); NEUTROPHILS # (AUTO) 4.8 (2.1-6.9); NEUTROPHILS % 71.1 % (38.7-80.0); PLATELET COUNT 75 x10e3/uL (140-360); RED BLOOD COUNT 2.81 x10e6/uL (4.3-5.7); RED CELL DISTRIBUTION WIDTH 15.5 % (11.7-14.4)
[2018-03-21 05:35] LABS: ALBUMIN 3.1 g/dL (3.5-5.0); ANION GAP 17.5 mmol/L (8-16); CALCIUM 8.5 mg/dL (8.4-10.2); CREATININE, SERUM 4.6 mg/dL (0.72-1.25); POTASSIUM 3.5 mmol/L (3.5-5.1)
[2018-03-21 06:11] LABS: EOSINOPHILS % (MANUAL) 3 % (0-7); LYMPHOCYTES % (MANUAL) 9 % (19-48); MONOCYTES % (MANUAL) 9 % (3.4-9.0); NEUTROPHILS % (MANUAL) 79 % (40-74)
[2018-03-21 06:12] LABS: ANISOCYTOSIS S; PLATELET ESTIMATE MODERATELY DECREASED; PLATELET MORPHOLOGY COMMENT NORMAL; POIKILOCYTOSIS S; RBC MORPHOLOGY COMMENT NORMAL
[2018-03-21] MEDS: INSULIN REGULAR, HUMAN 100 UNIT/1 ML 3ML VIAL SQ SCH ×4 (07:30→21:00)
[2018-03-21] MEDS: CIPROFLOXACIN 250 MG TAB PO SCH (08:41)
[2018-03-21] MEDS: LORAZEPAM 1 MG TAB PO SCH ×2 (08:41→21:00)
[2018-03-21] MEDS: SODIUM BICARBONATE 650 MG TAB PO SCH ×2 (08:41→16:21)
[2018-03-21] MEDS: HYDRALAZINE HCL 25 MG TAB PO SCH ×3 (08:41→21:00)
[2018-03-21] MEDS: NIFEDIPINE CR 30 MG TAB PO SCH (08:41)
[2018-03-21] MEDS: LANOLIN 4.5 OZ OINT TP SCH ×2 (08:42→16:21)
[2018-03-21] MEDS: SERTRALINE HCL 100 MG TAB PO SCH (08:42)
[2018-03-21] MEDS: METOPROLOL SUCCINATE 25 MG TAB XL PO SCH (08:42)
--- NOTE | 2018-03-21 09:14 | NUR ---
pt resting in bed, no c/o pain or s/s distress. will continue to monitor
[2018-03-21] MEDS ORDERED: CEFTRIAXONE SOD 1 GM VIAL IV SCH (10:15)
--- NOTE | 2018-03-21 11:05 | Consultation ---
DATE OF CONSULTATION: March 21, 2018 Thank you for this kind consult. Mr. Slaughter is an 82-year-old gentleman with chronic history of BPH, multiple urological problems by Dr. Marv Hernandez. He comes in complaining that he cannot urinate. He was found to be anemic with a hemoglobin of 6.6. He had some shortness of breath apparently in the emergency room. His urine was sent in for culture and sensitivity. He received a Savage cath. Further workup on the urine culture showed enterobacter. The patient has chronic kidney disease also with elevated creatinine. Infectious disease was consulted for management of UTI. PAST MEDICAL HISTORY: Includes chronic kidney disease that was metastatic, hypertension, BPH, depression. ALLERGIES: NO KNOWN DRUG ALLERGIES. MEDICATIONS: List has been reviewed. As far as infectious disease point of view, the patient is on Cipro p.o. 250 mg b.i.d. LABORATORY STUDIES: White count is 6.75, hemoglobin of 8.7 improved from 6.6, and platelet count of 75,000. Creatinine is 4.6 with a baseline around 1.1 from what I see. However, creatinine is currently elevated at 4.6. Sodium is 134, potassium is 3.5. MICROBIOLOGY: Urine culture is enterobacter. There is no blood culture. REVIEW OF SYSTEMS: No nausea, vomiting, fever, chills, chest pain, or shortness of breath. PHYSICAL EXAMINATION GENERAL: Comfortably in bed in no acute distress. VITALS: Temperature is 97.2, pulse 78, respirations 20, blood pressure 121/73. CV: S1 and S2. CHEST: Equal expansion. No acute distress. ABDOMEN: Soft, obese and nontender. HEENT: Moist. No JVD. EXTREMITIES: No acute finding. ASSESSMENT AND PLAN: This 82-year-old gentleman with chronic kidney disease, dysuria and BPH. Urine showed enterobacter. The patient currently above his baseline creatinine level. Renal is on the case. Change antibiotics to Rocephin at this point. Further management of this patient is based on daily findings, laboratory and physical examination. I want to thank you for this kind consult. This case was discussed with Dr. Hargrove in detail. Again, the patient has no allergies to any drugs. DICTATED BY NOE HOLDER Job#: [id number] DE
--- NOTE | 2018-03-21 12:00 | NUR ---
pt in shower
[2018-03-21] MEDS: CEFTRIAXONE SOD 1 GM/NS 50 ML 50 ML IV SCH (12:39)
--- NOTE | 2018-03-21 13:13 | Progress Note ---
DATE: March 21, 2018 MEDICINE PROGRESS NOTE SUBJECTIVE: Patient is doing well today with no other complaints. OBJECTIVE VITAL SIGNS: He is afebrile, respiratory rate is , blood pressure 141/65. GENERAL: Not in acute distress. Alert and oriented times 3. Cooperative on examination. HEENT: Head is normocephalic and atraumatic. Eyes: Pupils equal, round and reactive to light bilaterally. Extraocular movements intact bilaterally. NECK: Supple. Good range of motion. Throat with no evidence of any erythema or exudates in the posterior pharynx. Has poor dentition. PULMONARY: Clear to auscultation bilaterally. No wheezing. No rales. No rhonchi. No crackles appreciated. CARDIOVASCULAR: Positive S1 and S2. No murmurs, rubs or gallops appreciated. ABDOMEN: Soft, nondistended and nontender to palpation. Bowel sounds present. MUSCULOSKELETAL: Strength is 5/5 throughout. No evidence of any muscle deficit on examination. No weakness appreciated. NEUROLOGICAL: Cranial nerves II-XII are grossly intact. No evidence of any neurological deficits on exam. SKIN: Intact. Warm to touch. Good cap refill. PSYCHIATRIC: Normal affect and mood. EXTREMITIES: No edema. Good range of motion throughout. LABS: Reviewed with white count 6.7, hemoglobin 8.7, hematocrit 26, and platelets of 75,000. Chemistry: Sodium 140, potassium 3.5, chloride 102, bicarb 18, BUN 98, creatinine is 4.6. Urine culture positive. IMPRESSION 1. Acute kidney injury on chronic kidney disease, stage 4. 2. Symptomatic anemia, status post blood transfusion. 3. Metabolic acidosis secondary to renal failure. 4. Pancytopenia. 5. History of transurethral resection of prostate with enlarged prostate. PLAN: At this time, no further workup needed by urology in which I spoke with him directly. Nephrology is watching closely and evaluating this acute kidney injury. A renal ultrasound has been reviewed. Get a.m. labs. Continue with the medications. ID is following in terms of the UTI. He is currently on IV Rocephin. Job#: [id number] [place]
[2018-03-21 16:19] LABS: ANION GAP 15.4 mmol/L (8-16); CALCIUM 8.8 mg/dL (8.4-10.2); CREATININE, SERUM 4.36 mg/dL (0.72-1.25); POTASSIUM 3.4 mmol/L (3.5-5.1)
--- NOTE | 2018-03-21 19:54 | NUR ---
Received change of shift report from AM nurse. Walking rounds completed.
[2018-03-21] MEDS: TAMSULOSIN HCL 0.4 MG CAP PO SCH (21:00)
[2018-03-21] MEDS: MIRTAZAPINE 15 MG TAB PO SCH (21:00)
[2018-03-22] VITALS (7 sets, daily range): BP systolic 120–162; BP diastolic 58–77
[2018-03-22] MEDS: SODIUM BICARBONATE 8.4% SYRING 100 ML in DEXTROSE 5% 1,000 ML IV SCH ×2 (04:36→23:00)
[2018-03-22 05:40] LABS: ALBUMIN 2.9 g/dL (3.5-5.0); ALBUMIN/GLOBULIN RATIO 0.9 (0.8-2.0); ANION GAP 13.2 mmol/L (8-16); CALCIUM 8.4 mg/dL (8.4-10.2); CREATININE, SERUM 4.46 mg/dL (0.72-1.25); POTASSIUM 3.2 mmol/L (3.5-5.1)
[2018-03-22] MEDS: INSULIN REGULAR, HUMAN 100 UNIT/1 ML 3ML VIAL SQ SCH ×4 (08:15→21:08)
[2018-03-22] MEDS: LORAZEPAM 1 MG TAB PO SCH ×2 (09:09→21:00)
[2018-03-22] MEDS: HYDRALAZINE HCL 25 MG TAB PO SCH ×3 (09:09→21:00)
[2018-03-22] MEDS: CEFTRIAXONE SOD 1 GM/NS 50 ML 50 ML IV SCH (09:09)
[2018-03-22] MEDS: SODIUM BICARBONATE 650 MG TAB PO SCH ×2 (09:10→17:44)
[2018-03-22] MEDS: NIFEDIPINE CR 30 MG TAB PO SCH (09:10)
[2018-03-22] MEDS: METOPROLOL SUCCINATE 25 MG TAB XL PO SCH (09:11)
[2018-03-22] MEDS: SERTRALINE HCL 100 MG TAB PO SCH (09:11)
[2018-03-22] MEDS: LANOLIN 4.5 OZ OINT TP SCH ×2 (09:12→17:44)
[2018-03-22] MEDS ORDERED: POTASSIUM CHLORIDE 20 MEQ TAB CR PO ONE (12:00)
--- NOTE | 2018-03-22 14:39 | Progress Note ---
DATE: March 22, 2018 MEDICINE PROGRESS NOTE SUBJECTIVE: The patient is doing well today with no other complaints. He reports no other issues at this time. PHYSICAL EXAMINATION VITAL SIGNS: He is afebrile, normotensive, respiratory rate is good. GENERAL: In no acute distress. Alert and oriented x3. Cooperative on examination. HEENT: Head is normocephalic and atraumatic. Eyes: Pupils equal, round and reactive to light bilaterally. Extraocular movements intact bilaterally. NECK: Supple. Good range of motion. Throat with no evidence of any erythema or exudates in the posterior pharynx. Has poor dentition. PULMONARY: Clear to auscultation bilaterally. No wheezing. No rales. No rhonchi. No crackles appreciated. CARDIOVASCULAR: Positive S1 and S2. No murmurs, rubs or gallops appreciated. ABDOMEN: Soft, nondistended and nontender to palpation. Bowel sounds present. MUSCULOSKELETAL: Strength is 5/5 throughout. No evidence of any muscle deficit on examination. No weakness appreciated. NEUROLOGICAL: Cranial nerves II through XII are grossly intact. No evidence of any neurological deficits on exam. SKIN: Intact. Warm to touch. Good cap refill. PSYCHIATRIC: Normal affect and mood. EXTREMITIES: No edema. Good range of motion throughout. LABORATORY FINDINGS: White count is 6.7, hemoglobin is 8.7, hematocrit is 26, platelets of 75. Chemistries; sodium 137, potassium 3.3, chloride is 101, bicarb 23, anion gap of 30, BUN 95, creatinine is . MICROBIOLOGY: He had Enterobacter aerogenes. IMAGING STUDIES: None. ASSESSMENT 1. Acute kidney injury on chronic kidney disease stage 4. 2. Symptomatic anemia status post blood transfusion. 3. Metabolic acidosis secondary to renal failure. 4. Pancytopenia. 5. History of transurethral resection of the prostate with enlarged prostate. 6. Urinary tract infection. PLAN: I spoke to Urology. No further workup needed by Urology. Nephrology is watching the labs very closely. Renal ultrasound was reviewed. He is on IV antibiotics for UTI. Continue the same plan of care. Dr. Watt will be available tomorrow. Job#: [id number] MAICOL
--- NOTE | 2018-03-22 19:30 | NUR ---
Received change of shift report from AM nurse. Walking rounds completed.
--- NOTE | 2018-03-22 20:03 | NUR ---
Patient in supine position in bed. AAOx3. Denies pain mat this time. IV intact to right AC. Pt CHITIMACHA. Bed down to low level. SR up x2. Bed locked in place. Patient in no distress or discomfort at this time.
[2018-03-22] MEDS: MIRTAZAPINE 15 MG TAB PO SCH (21:00)
[2018-03-22] MEDS: TAMSULOSIN HCL 0.4 MG CAP PO SCH (21:00)
[2018-03-23] VITALS (7 sets, daily range): BP systolic 146–160; BP diastolic 67–70
--- NOTE | 2018-03-23 | NUR ---
Patient up out of bed to use urinal. 200cc of paola color urine noted. Patient returned to bed and is resting quitly at this time.
[2018-03-23 04:41] LABS: BASOPHILS % 0.3 % (0.0-1.0); EOSINOPHILS # (AUTO) 0.2 (0.0-0.4); EOSINOPHILS % 6.9 % (0.0-6.0); HEMATOCRIT 23.2 % (38.2-49.6); HEMOGLOBIN 7.8 g/dL (14.0-18.0); LYMPHOCYTES # (AUTO) 0.3 (1.0-3.2); LYMPHOCYTES % 9.3 % (18.0-39.1); MEAN CORPUSCULAR HGB CONC 33.6 g/dL (31-35); MEAN CORPUSCULAR VOLUME 92.1 fL (81-99); MONOCYTES # (AUTO) 0.8 (0.2-0.8); MONOCYTES % 24.6 % (4.4-11.3); NEUTROPHILS # (AUTO) 1.9 (2.1-6.9); NEUTROPHILS % 58.3 % (38.7-80.0); PLATELET COUNT 84 x10e3/uL (140-360); RED BLOOD COUNT 2.52 x10e6/uL (4.3-5.7); RED CELL DISTRIBUTION WIDTH 15.2 % (11.7-14.4)
[2018-03-23 04:59] LABS: ANION GAP 14.4 mmol/L (8-16); CALCIUM 8.2 mg/dL (8.4-10.2); CREATININE, SERUM 3.89 mg/dL (0.72-1.25); POTASSIUM 3.4 mmol/L (3.5-5.1)
[2018-03-23] MEDS: INSULIN REGULAR, HUMAN 100 UNIT/1 ML 3ML VIAL SQ SCH ×4 (09:18→20:46)
[2018-03-23] MEDS: CEFTRIAXONE SOD 1 GM/NS 50 ML 50 ML IV SCH (09:18)
[2018-03-23] MEDS: HYDRALAZINE HCL 25 MG TAB PO SCH ×3 (09:18→20:45)
[2018-03-23] MEDS: NIFEDIPINE CR 30 MG TAB PO SCH (09:18)
[2018-03-23] MEDS: LORAZEPAM 1 MG TAB PO SCH (09:18)
[2018-03-23] MEDS: SERTRALINE HCL 100 MG TAB PO SCH (09:19)
[2018-03-23] MEDS: SODIUM BICARBONATE 650 MG TAB PO SCH ×2 (09:19→17:19)
[2018-03-23] MEDS: METOPROLOL SUCCINATE 25 MG TAB XL PO SCH (09:19)
[2018-03-23 09:43] LABS: EOSINOPHILS % (MANUAL) 6 % (0-7); LYMPHOCYTES % (MANUAL) 8 % (19-48); MONOCYTES % (MANUAL) 26 % (3.4-9.0); NEUTROPHILS % (MANUAL) 60 % (40-74); PLATELET ESTIMATE SLIGHTLY DECREASED; PLATELET MORPHOLOGY COMMENT NORMAL; RBC MORPHOLOGY COMMENT NORMAL
[2018-03-23] MEDS: LANOLIN 4.5 OZ OINT TP SCH ×2 (09:57→17:19)
[2018-03-23] MEDS ORDERED: POTASSIUM CHLORIDE 10MEQ EA PO ONE (13:00)
--- NOTE | 2018-03-23 18:26 | NUR ---
PT IN ROOM SITTING ON THE CHAIR, DENIES PAIN, CONTINUE ON IV FLIUDS. NO DISTRESS NOTED.CARLY GOODEN C/F DR COLBY NOTIFIED OF HGB 7.8, NO NEW ORDERS. PT DENIES ANY DIZZINESS OR DISCOMFORT.
--- NOTE | 2018-03-23 19:48 | NUR ---
Received change of shift report from AM nurse. Walking rounds completed.
--- NOTE | 2018-03-23 20:28 | NUR ---
Patient in bed resting in supine position. No noted pain or discomfort. Open eyes when name is called. Continue monitor.
[2018-03-23] MEDS: TAMSULOSIN HCL 0.4 MG CAP PO SCH (20:45)
[2018-03-23] MEDS: SODIUM BICARBONATE 8.4% SYRING 100 ML in DEXTROSE 5% 1,000 ML IV SCH (20:45)
[2018-03-23] MEDS: MIRTAZAPINE 15 MG TAB PO SCH (20:46)
[2018-03-24] VITALS: BP 153/68
[2018-03-24 04:00] VITALS: BP 151/65
--- NOTE | 2018-03-24 04:03 | NUR ---
Patient respond to touch but resting quitly with no c/o at this time.
[2018-03-24 05:03] LABS: ANION GAP 14.4 mmol/L (8-16); CREATININE, SERUM 3.54 mg/dL (0.72-1.25); POTASSIUM 3.4 mmol/L (3.5-5.1)
--- NOTE | 2018-03-24 07:00 | NUR ---
RCD PT AT BED PT IS ALERT AND ORIENTED PT RESTING ON BED FAMILY AT BED SIDE BED LOW AND LOCKED CALL LIGHT IN REACH
[2018-03-24] MEDS: INSULIN REGULAR, HUMAN 100 UNIT/1 ML 3ML VIAL SQ SCH (07:30)
[2018-03-24 08:00] VITALS: BP 159/60
[2018-03-24] MEDS: CEFTRIAXONE SOD 1 GM/NS 50 ML 50 ML IV SCH (08:41)
[2018-03-24] MEDS: LANOLIN 4.5 OZ OINT TP SCH (09:00)
[2018-03-24] MEDS: HYDRALAZINE HCL 25 MG TAB PO SCH (09:00)
[2018-03-24] MEDS: SODIUM BICARBONATE 650 MG TAB PO SCH (09:00)
[2018-03-24] MEDS: SERTRALINE HCL 100 MG TAB PO SCH (09:00)
[2018-03-24] MEDS: METOPROLOL SUCCINATE 25 MG TAB XL PO SCH (09:00)
[2018-03-24] MEDS: NIFEDIPINE CR 30 MG TAB PO SCH (09:00)
[2018-03-24] MEDS ORDERED: HYDRALAZINE HCL25 MG PO (10:04)
[2018-03-24] MEDS ORDERED: GLIPIZIDE ER5 MG PO (10:06)
[2018-03-24] MEDS ORDERED: FLOMAX0.4 MG PO (10:06)
[2018-03-24] MEDS ORDERED: FERROUS SULFAT325 MG PO (10:07)
[2018-03-24] MEDS ORDERED: SENNA LAXATIVE8.6 MG PO (10:09)
--- NOTE | 2018-03-24 11:00 | NUR ---
PT WENT HOME IN SAFE CONDITION WITH HIS
--- NOTE | 2018-03-24 14:31 | Discharge Summary ---
CONSULTANTS: Dr. Marv Heranndez, Dr. Rosie Ratliff, Dr. Porsha Hargrove. FINAL DIAGNOSES 1. Eqyug-ia-fktlhck kidney failure secondary to urinary bladder obstruction secondary to enlarged prostate. 2. Electrolyte disorder, corrected. 3. Urinary retention secondary to enlarged prostate. 4. Hypertensive urgency. 5. Anemia, chronically, status post blood transfusion. An 82-year-old male with shortness of breath and symptomatic anemia came in with hemoglobin and hematocrit very low. Patient required treatment due to his symptoms. Patient also found have urinary retention. Savage catheter placed. On admission, his hemoglobin and hematocrit was 6.5 and 20.4. The patient's BUN and creatinine was also elevated due to his retention. BUN was 107 and the creatinine was 5.28. Savage catheter placed. The patient diuresed with the Savage catheter in place. The patient also found to have a urinary tract infection. The patient remains stable. He is comfortable. He is not having any increasing shortness of breath. He is able to ambulate. His hemoglobin and hematocrit is 7.8 and 23.2. Platelets are 84,000. The patient is stable at this time. He is comfortable. Patient's platelets are going up toward normalization. Urine culture grew out to be Enterobacter aerogenes. It was sensitive to Keflex. The patient is stable at this time. He is comfortable. He will go home with the following medications: 1. Glucotrol XL 2.5 mg daily. 2. Hydralazine 100 mg t.i.d. 3. Flomax 0.4 mg t.i.d. 4. Keflex 500 mg 1 tablet 3 times a day for 7 days. The patient is stable. He will follow up with Dr. Marv Hernandez and Dr. Rosie Ratliff as an outpatient. The patient is stable today. He will follow up as planned. Job#: [id number] [place]
== END 2018-03-24 11:00 | disposition home or self-care (01) | DRG 683 ==
LOC: ER 13:23 → ERHOLD 20:26 → IMCU 03-15 14:42 → MED/SURG2 03-18 18:03
PROVIDERS: ADMIT Internal Medicine; ATTEND Internal Medicine
DX: N17.0 Acute kidney failure with tubular necrosis (principal); N13.8 Other obstructive and reflux uropathy; E87.2 Acidosis; N39.0 Urinary tract infection, site not specified; D61.818 Other pancytopenia; N40.1 Benign prostatic hyperplasia with lower urinary tract symptoms; N18.4 Chronic kidney disease, stage 4 (severe); R33.8 Other retention of urine; I12.9 Hypertensive chronic kidney disease with stage 1 through stage 4 chronic kidney disease, or unspecified chronic kidney disease; E87.8 Other disorders of electrolyte and fluid balance, not elsewhere classified; I16.0 Hypertensive urgency; B96.89 Other specified bacterial agents as the cause of diseases classified elsewhere; R35.0 Frequency of micturition; R39.12 Poor urinary stream; E11.22 Type 2 diabetes mellitus with diabetic chronic kidney disease; Z79.4 Long term (current) use of insulin; D63.8 Anemia in other chronic diseases classified elsewhere; D63.1 Anemia in chronic kidney disease
CPT/HCPCS: 36415; 51700; 71045; 76770; 80048; 80053; 81001; 81015; 82270; 82550; 82553; 82607; 82728; 82746; 82948; 83036; 83540; 83880; 83970; 84100; 84443; 84466; 84484; 85025; 85610; 85730; 86850; 86900; 86920; 87086; 87186; 90732; 93005; 96361; 96372; 99284; J0360; J0696; J1940; J7050; J7070; P9016

== ENCOUNTER 2018-06-27 14:07 | Inpatient (IN) | payer MEDICARE ==
[~2018-06-27] VITALS: Ht 182.9 cm; Wt 93.0 kg
[~2018-06-27 14:07] MED LIST changes: +FERROUS SULFAT325 MG PO; +FLOMAX0.4 MG PO; +GLIPIZIDE ER5 MG PO; +HYDRALAZINE HCL25 MG PO; +LEVOCETIRIZINE D5 MG PO; +LOSARTAN POTASS25 MG PO; +METOPROLOL SUCC25 MG PO; +NIFEDIAC CC60 MG PO; +SENNA LAXATIVE8.6 MG PO
[2018-06-27 15:10] LABS: EOSINOPHILS # (AUTO) 0.2 (0.0-0.4); EOSINOPHILS % 6.9 % (0.0-6.0); LYMPHOCYTES # (AUTO) 0.4 (1.0-3.2); LYMPHOCYTES % 17.4 % (18.0-39.1); MEAN CORPUSCULAR HEMOGLOBIN 31.1 pg (28-32); MEAN CORPUSCULAR HGB CONC 31.7 g/dL (31-35); MEAN CORPUSCULAR VOLUME 97.9 fL (81-99); MONOCYTES # (AUTO) 0.2 (0.2-0.8); MONOCYTES % 10.1 % (4.4-11.3); NEUTROPHILS # (AUTO) 1.4 (2.1-6.9); NEUTROPHILS % 65.1 % (38.7-80.0); PLATELET COUNT 101 x10e3/uL (140-360)
[2018-06-27 15:12] LABS: HEMATOCRIT 18.6 % (38.2-49.6); HEMOGLOBIN 5.9 g/dL (14.0-18.0)
--- NOTE | 2018-06-27 15:13 | NUR ---
NOTIFIED DR LE [facility] CALLED A CRITICAL RESULT, H&H 5.918.6.
[2018-06-27] MEDS ORDERED: SODIUM CHLORIDE FLUSH 10 ML SYR INJ PRN (15:15)
[2018-06-27] MEDS ORDERED: SODIUM CHLORIDE 0.9% 250ML 250 ML IV ONE (15:15)
[2018-06-27 15:29] LABS: ALANINE AMINOTRANSFERASE < 6 IU/L (0-55); ALBUMIN 3.7 g/dL (3.5-5.0); ALBUMIN/GLOBULIN RATIO 1.2 (0.8-2.0); ALKALINE PHOSPHATASE 98 IU/L (40-150); ANION GAP 12.4 mmol/L (8-16); BLOOD UREA NITROGEN 73 mg/dL (7-26); BUN/CREATININE RATIO 25 (6-25); CALCIUM 8.3 mg/dL (8.4-10.2); CARBON DIOXIDE 15 mmol/L (22-29); CHLORIDE 116 mmol/L (98-107); CREATININE, SERUM 2.95 mg/dL (0.72-1.25); EST GLOMERULAR FILTRATION RATE 20 ML/MIN (60-); GLUCOSE 128 mg/dL (74-118); POTASSIUM 4.4 mmol/L (3.5-5.1); SODIUM 139 mmol/L (136-145)
[2018-06-27 16:03] LABS: FERRITIN 432.76 ng/mL (21.81-274.66)
[2018-06-27] MEDS ORDERED: DEXTROSE 50% SYRINGE 50 ML IV PRN (16:15)
--- NOTE | 2018-06-27 16:20 | NUR ---
CONSENT FORM OBTAINED, BLOOD VERFIED AT BEDSIDE, BLOOD TRANSFUSION BEING INITATED AT THIS TIME.
[2018-06-27] MEDS: INSULIN REGULAR, HUMAN 100 UNIT/1 ML 3ML VIAL SQ SCH ×2 (16:30→20:26)
--- NOTE | 2018-06-27 16:53 | NUR ---
Report and care hand off given to EMELY Hu.
[2018-06-27 17:24] VITALS: BP 203/86
--- NOTE | 2018-06-27 18:15 | NUR ---
SPOKE WITH MD COLBY, MADE AWARE OF NEW PT AND ELEVATED BP SINCE ARRIVAL TO UNIT, ORDERS NOTED
[2018-06-27] MEDS ORDERED: SUCRALFATE1 GM PO (18:21)
[2018-06-27] MEDS ORDERED: SIMVASTATIN40 MG PO (18:21)
[2018-06-27] MEDS ORDERED: GLIPIZIDE5 MG PO (18:21)
[2018-06-27] MEDS ORDERED: REMERON30 MG PO (18:21)
--- NOTE | 2018-06-27 18:21 | NUR ---
SPOKE WITH MD RIVERA FOR DR WHITTAKER, AWARE OF CONSULT
[2018-06-27] MEDS ORDERED: LOSARTAN POTAS100 MG PO (18:25)
[2018-06-27] MEDS: LOSARTAN POTASSIUM 100 MG TAB PO SCH (18:40)
[2018-06-27] MEDS ORDERED: LOSARTAN POTASSIUM 100 MG TAB ONE (18:41)
[2018-06-27 18:53] VITALS: BP 206/86
[2018-06-27 20:00] VITALS: BP 194/80
--- NOTE | 2018-06-27 20:13 | NUR ---
bp rechecked 148/72 mmhg, AL 66 bpm.
--- NOTE | 2018-06-27 20:15 | NUR ---
CORRECTION FROM PREVIOUS ENTRY. BP 184/72 MMHG. PATIENT IS ASYMPTOMATIC. PAGED DR. COLBY. WAITING FOR CALL BACK.
[2018-06-27 20:44] VITALS: BP 194/80
[2018-06-27] MEDS ORDERED: SODIUM CHLORIDE 0.9% 250ML 250 ML ONE (21:26)
[2018-06-28] VITALS (8 sets, daily range): BP systolic 168–194; BP diastolic 73–85
[2018-06-28] MEDS: INSULIN REGULAR, HUMAN 100 UNIT/1 ML 3ML VIAL SQ SCH ×4 (07:30→19:58)
[2018-06-28 08:00] LABS: EOSINOPHILS # (AUTO) 0.1 (0.0-0.4); EOSINOPHILS % 5.7 % (0.0-6.0); HEMATOCRIT 24.3 % (38.2-49.6); HEMOGLOBIN 7.8 g/dL (14.0-18.0); LYMPHOCYTES # (AUTO) 0.5 (1.0-3.2); MEAN CORPUSCULAR HEMOGLOBIN 30.5 pg (28-32); MEAN CORPUSCULAR HGB CONC 32.1 g/dL (31-35); MEAN CORPUSCULAR VOLUME 94.9 fL (81-99); MONOCYTES # (AUTO) 0.3 (0.2-0.8); MONOCYTES % 13.4 % (4.4-11.3); NEUTROPHILS # (AUTO) 1.5 (2.1-6.9); NEUTROPHILS % 61.1 % (38.7-80.0); PLATELET COUNT 86 x10e3/uL (140-360); RED BLOOD COUNT 2.56 x10e6/uL (4.3-5.7)
[2018-06-28 08:02] LABS: INR 1.13
[2018-06-28 08:03] LABS: PARTIAL THROMBOPLASTIN TIME 38.1 seconds (23.8-35.5)
[2018-06-28 08:11] LABS: ALBUMIN 3.6 g/dL (3.5-5.0); ALBUMIN/GLOBULIN RATIO 1.2 (0.8-2.0); ALKALINE PHOSPHATASE 79 IU/L (40-150); BLOOD UREA NITROGEN 69 mg/dL (7-26); BUN/CREATININE RATIO 26 (6-25); CALCIUM 8.2 mg/dL (8.4-10.2); CARBON DIOXIDE 16 mmol/L (22-29); CHLORIDE 120 mmol/L (98-107); CREATININE, SERUM 2.61 mg/dL (0.72-1.25); EST GLOMERULAR FILTRATION RATE 24 ML/MIN (60-); GLUCOSE 109 mg/dL (74-118); MAGNESIUM 2.1 MG/DL (1.3-2.1); PHOSPHORUS 3.9 MG/DL (2.3-4.7); SODIUM 141 mmol/L (136-145)
[2018-06-28 08:12] LABS: ALANINE AMINOTRANSFERASE < 6 IU/L (0-55)
[2018-06-28] MEDS ORDERED: NIFEDIPINE 60 MG PO SCH (09:00)
[2018-06-28 09:12] LABS: ANION GAP 10.3 mmol/L (8-16)
[2018-06-28 09:13] LABS: POTASSIUM 5.3 mmol/L (3.5-5.1)
[2018-06-28] MEDS: NIFEDIPINE CR 30 MG TAB PO SCH (09:20)
[2018-06-28] MEDS: LOSARTAN POTASSIUM 100 MG TAB PO SCH (09:21)
[2018-06-28 09:28] LABS: EOSINOPHILS % (MANUAL) 3 % (0-7); LYMPHOCYTES % (MANUAL) 28 % (19-48); MONOCYTES % (MANUAL) 10 % (3.4-9.0); NEUTROPHILS % (MANUAL) 59 % (40-74); PLATELET ESTIMATE SLIGHTLY DECREASED; PLATELET MORPHOLOGY COMMENT NORMAL; RBC MORPHOLOGY COMMENT NORMAL
[2018-06-28] MEDS ORDERED: DIATRIZOATE MEGL/DIATRIZOA SOD 30 ML BTL PO ONE (09:48)
--- NOTE | 2018-06-28 10:45 | NUR ---
PATIENT TAKEN AWAY VIA WHEELCHAIR FOR CT SCAN OF ABDOMEN AND PELVIS
[2018-06-28] MEDS ORDERED: LORAZEPAM 1 MG TAB PO PRN (11:30)
--- NOTE | 2018-06-28 11:45 | Diagnostic Imaging Report ---
EXAM: CT Abdomen and Pelvis WITHOUT contrast INDICATION: Anemia. COMPARISON: Report from CT abdomen/pelvis 02/15/2013, although the images are not available for review at the time of this dictation. TECHNIQUE: Abdomen and pelvis were scanned utilizing a multidetector helical scanner from the lung base to the pubic symphysis without administration of IV contrast. Absence of intravenous contrast decreases sensitivity for detection of focal lesions and vascular pathology. Coronal and sagittal reformations were obtained. Routine protocol was performed. IV CONTRAST: None. ORAL CONTRAST: Gastrografin. RADIATION DOSE: Total DLP: 730.7 mGy*cm Dose modulation, iterative reconstruction, and/or weight based adjustment of the mA/kV was utilized to reduce the radiation dose to as low as reasonably achievable. COMPLICATIONS: None FINDINGS: LINES and TUBES: None. LOWER THORAX: Patchy dependent atelectasis. Coronary atherosclerosis. HEPATOBILIARY: Subcentimeter hepatic hypodensities are too small to characterize, but likely represent cysts. No biliary ductal dilation. GALLBLADDER: Cholelithiasis without CT evidence of cholecystitis. SPLEEN: Mild splenomegaly measuring up to 14.7 cm. PANCREAS: No focal masses or ductal dilatation. ADRENALS: No adrenal nodules KIDNEYS/URETERS: No evidence of hydronephrosis or solid mass. No evidence of stone. Simple appearing right-sided renal cyst. Exophytic subcentimeter lesion on the left is too small to characterize, but likely represents a cyst. Bilateral renal cortical atrophy. Nonspecific mild bilateral perinephric stranding. GI TRACT: No evidence of bowel obstruction. Apparent mild focal colonic wall thickening in the sigmoid colon on series 2, image 70. There is suboptimal evaluation of this area due to lack of IV contrast and non-opacification of the colon with enteric contrast. Appendix is normal. There is scattered colonic diverticulosis without CT evidence of diverticulitis. PELVIC ORGANS/BLADDER: The bladder is partially decompressed. The prostate is enlarged, measuring up to 5.3 x 4.1 cm. LYMPH NODES: No lymphadenopathy. VESSELS: Extensive atherosclerotic changes of the abdominal aorta. There is ectasia of the juxtarenal abdominal aorta measuring up to 2.9 cm and distal infrarenal abdominal aorta, measuring up to 2.6 cm. PERITONEUM / RETROPERITONEUM: No free air or fluid. BONES: No acute osseous abnormality. No suspicious lytic or blastic lesions. Degenerative changes of the visualized spine. SOFT TISSUES: Unremarkable. IMPRESSION: Possible focal sigmoid colonic wall thickening. This is incompletely evaluated due to lack of contrast. While this could represent decompression or stool contents, in the setting of anemia, underlying mass lesion cannot be excluded. Suggest colonoscopy for further evaluation. Colonic diverticulosis without CT evidence of diverticulitis. Mild splenomegaly, measuring up to 14.7 cm. Juxtarenal abdominal aortic ectasia, measuring up to 2.9 cm. Signed by: Dr. Viraj Cervantes MD on 06/28/2018 11:42 AM
[2018-06-28] MEDS: HYDRALAZINE HCL 25 MG TAB PO PRN ×2 (12:59→19:57)
[2018-06-28] MEDS ORDERED: SOD POLYSTYRENE SULFONATE SUSP 15 GM/60 ML BTL PO ONE (13:30)
--- NOTE | 2018-06-28 14:28 | Consultation ---
DATE OF CONSULTATION: 06/28/2018 HISTORY OF PRESENT ILLNESS: Mr. Sukhjinder Javier is known to our Nephrology Service. An 82-year-old gentleman with history of BPH; chronic kidney disease, stage 3; and history of hypertension, admitted with abdominal pain. CT scan noted. CURRENT MEDICATIONS: He is on regular insulin before meals on protocol, sertraline 100 mg daily. He is on Remeron 30 mg at bedtime, nifedipine 60 mg daily. Losartan has been stopped. Hydralazine p.r.n. For dose, can you please see MAR. PHYSICAL EXAMINATION: GENERAL: Awake, alert, and resting comfortable. No apparent distress. VITAL SIGNS: Blood pressure of 179/81, pulse rate 67, afebrile, and respiratory rate 18. HEAD AND NECK: Cornea clear. Oral mucosa moist. Neck veins flat. LUNGS: Bilaterally clear. HEART: S1 and S2 audible. ABDOMEN: Otherwise soft and nontender. LOWER EXTREMITIES: Shows no edema. LABORATORY TEST: Shows a white count of 2.4, hemoglobin 7.8, status post packed RBC transfusion, and reticulocyte 5.1%. Chemistry show potassium 5.3, bicarbonate 16, and creatinine 2.61. IMPRESSION: Hyperkalemia; distal, type 4, renal tubular acidosis; acute on chronic kidney failure; underlying benign prostatic hypertrophy; hypertension; and iron deficiency anemia. PLAN: Must rule out GI bleed. Consider GI consultation and endoscopy. In the mean time, we will continue with Procardia and add sodium bicarbonate. We will give Kayexalate and lactulose. Change diet to renal diet as well as start Flomax 0.4 mg p.o. daily. Discussed with RN. Please see orders. Rosie Ratliff MD SAK/JEETL /[id number]
[2018-06-28] MEDS: SODIUM BICARBONATE 650 MG TAB PO SCH (16:31)
[2018-06-28] MEDS: MIRTAZAPINE 15 MG TAB PO SCH (19:48)
[2018-06-28] MEDS: TAMSULOSIN HCL 0.4 MG CAP PO SCH (19:48)
[2018-06-29] VITALS (8 sets, daily range): BP systolic 145–189; BP diastolic 66–83
[2018-06-29 06:03] LABS: EOSINOPHILS # (AUTO) 0.2 (0.0-0.4); EOSINOPHILS % 7.1 % (0.0-6.0); HEMATOCRIT 25.4 % (38.2-49.6); HEMOGLOBIN 8.3 g/dL (14.0-18.0); LYMPHOCYTES # (AUTO) 0.5 (1.0-3.2); LYMPHOCYTES % 20.9 % (18.0-39.1); MEAN CORPUSCULAR HEMOGLOBIN 30.6 pg (28-32); MEAN CORPUSCULAR HGB CONC 32.7 g/dL (31-35); MEAN CORPUSCULAR VOLUME 93.7 fL (81-99); MONOCYTES # (AUTO) 0.3 (0.2-0.8); MONOCYTES % 13.3 % (4.4-11.3); NEUTROPHILS # (AUTO) 1.3 (2.1-6.9); NEUTROPHILS % 58.3 % (38.7-80.0); PLATELET COUNT 77 x10e3/uL (140-360); RED BLOOD COUNT 2.71 x10e6/uL (4.3-5.7)
[2018-06-29 06:26] LABS: ALBUMIN 3.5 g/dL (3.5-5.0); ALBUMIN/GLOBULIN RATIO 1.1 (0.8-2.0); ALKALINE PHOSPHATASE 83 IU/L (40-150); ANION GAP 11.6 mmol/L (8-16); BLOOD UREA NITROGEN 59 mg/dL (7-26); BUN/CREATININE RATIO 24 (6-25); CALCIUM 8.3 mg/dL (8.4-10.2); CARBON DIOXIDE 17 mmol/L (22-29); CHLORIDE 117 mmol/L (98-107); CREATININE, SERUM 2.46 mg/dL (0.72-1.25); EST GLOMERULAR FILTRATION RATE 25 ML/MIN (60-); GLUCOSE 103 mg/dL (74-118); POTASSIUM 4.6 mmol/L (3.5-5.1); SODIUM 141 mmol/L (136-145)
[2018-06-29 06:32] LABS: ALANINE AMINOTRANSFERASE < 6 IU/L (0-55)
[2018-06-29 06:46] LABS: THYROID STIMULATING HORMONE 3.085 uIU/mL (0.350-4.940)
[2018-06-29] MEDS: INSULIN REGULAR, HUMAN 100 UNIT/1 ML 3ML VIAL SQ SCH ×4 (07:30→21:06)
[2018-06-29] MEDS: NIFEDIPINE CR 30 MG TAB PO SCH ×2 (09:00→17:00)
[2018-06-29] MEDS: SERTRALINE HCL 100 MG TAB PO SCH (09:00)
[2018-06-29] MEDS: SODIUM BICARBONATE 650 MG TAB PO SCH ×2 (09:00→21:06)
[2018-06-29 09:11] LABS: EOSINOPHILS % (MANUAL) 6 % (0-7); LYMPHOCYTES % (MANUAL) 20 % (19-48)
[2018-06-29 09:12] LABS: MONOCYTES % (MANUAL) 13 % (3.4-9.0); NEUTROPHILS % (MANUAL) 61 % (40-74); PLATELET ESTIMATE MODERATELY DECREASED; PLATELET MORPHOLOGY COMMENT NORMAL
[2018-06-29 09:15] LABS: OVALOCYTES FEW; POLYCHROMASIA FEW; RBC MORPHOLOGY COMMENT ABNORMAL; SCHISTOCYTES FEW
[2018-06-29] MEDS ORDERED: PEG (High)/E-LYTE SOLN 4,000 ML BTL PO ONE (17:00)
[2018-06-29] MEDS: TAMSULOSIN HCL 0.4 MG CAP PO SCH (21:06)
[2018-06-29] MEDS: MIRTAZAPINE 15 MG TAB PO SCH (21:06)
[2018-06-30] VITALS (11 sets, daily range): BP systolic 137–204; BP diastolic 60–82
[2018-06-30] MEDS ORDERED: CITRATE OF MAGNESIA 300ML BOTTLE PO ONE (05:00)
[2018-06-30] MEDS: HYDRALAZINE HCL 25 MG TAB PO PRN ×3 (06:38→23:38)
[2018-06-30 06:46] LABS: BASOPHILS % 0.5 % (0.0-1.0); EOSINOPHILS # (AUTO) 0.2 (0.0-0.4); EOSINOPHILS % 7.1 % (0.0-6.0); HEMOGLOBIN 8.7 g/dL (14.0-18.0); LYMPHOCYTES # (AUTO) 0.5 (1.0-3.2); LYMPHOCYTES % 22.6 % (18.0-39.1); MEAN CORPUSCULAR HEMOGLOBIN 30.7 pg (28-32); MEAN CORPUSCULAR HGB CONC 32.2 g/dL (31-35); MEAN CORPUSCULAR VOLUME 95.4 fL (81-99); MONOCYTES # (AUTO) 0.3 (0.2-0.8); MONOCYTES % 13.2 % (4.4-11.3); NEUTROPHILS # (AUTO) 1.2 (2.1-6.9); NEUTROPHILS % 55.7 % (38.7-80.0); PLATELET COUNT 99 x10e3/uL (140-360); RED BLOOD COUNT 2.83 x10e6/uL (4.3-5.7); RED CELL DISTRIBUTION WIDTH 16.7 % (11.7-14.4)
--- NOTE | 2018-06-30 07:05 | NUR ---
pt resting in bed aa0x3. pt is in no s.s of distress. denies pain at this time pt is npo for colonoscopy procedure and has been prepped pt has an iv access to the left ac 20 patent and dry, right ac is not patent, will dc will continue to monitor at this time, side railsx2, bed wheels locked, call light is within easy reach, instructed to call light is needing assistance
[2018-06-30] MEDS: INSULIN REGULAR, HUMAN 100 UNIT/1 ML 3ML VIAL SQ SCH ×4 (07:30→21:30)
[2018-06-30] MEDS: SODIUM BICARBONATE 650 MG TAB PO SCH ×3 (10:00→21:18)
[2018-06-30] MEDS: NIFEDIPINE CR 30 MG TAB PO SCH ×2 (10:00→21:18)
[2018-06-30] MEDS: SERTRALINE HCL 100 MG TAB PO SCH (10:00)
--- NOTE | 2018-06-30 10:00 | NUR ---
md obrien has rounded and talked to pt about cbc count upon arrival to hospital. instructed pt that he was to see him at his office for an op bone marrow bx to evaluate the cause of the low level. pt verbalized understanding at this time
--- NOTE | 2018-06-30 11:37 | NUR ---
204/80 IS BP READING OF 1200 TAKEN MANUALLY. PT DENIES PAIN STATES "A LITTLE SHOOK UP AFTER MD PORTER LUGGAGE STOPPED BY, IM GOING TO TRY AND TAKE A NAP" INSTRUCTED TO RELAX TAKE PRN HYDRALAZINE AND WILL REASSESS BP IN 30 MIN
--- NOTE | 2018-06-30 12:57 | NUR ---
bp has improved at this time. documented trend in v/s intervention pt is resting comfortably last bm is clear green . no solids present
--- NOTE | 2018-06-30 16:05 | NUR ---
CALLED MD COLBY FOR AN ELEVATED BP OF 1600 V/S READING 191/82 NEW ORDERS RECEIVED
[2018-06-30] MEDS ORDERED: NIFEDIPINE CR 30 MG TAB PO ONE (16:15)
--- NOTE | 2018-06-30 16:18 | NUR ---
PT OFF UNIT FOR COLONOSCOPY NOTIFIED TRANSFERRING NURSE OF CURRENT V.S
--- NOTE | 2018-06-30 17:36 | NUR ---
PT BACK FROM COLONOSCOPY. PT IS ON GI SOFT DIET AA0X3. PT IS IN NO S.S OF DISTRESS. WILL CONTINUE TO CARE AT THIS TIME
[2018-06-30] MEDS ORDERED: FENTANYL CITRATE/PF 100MCG/2 ML INJ ONE (20:14)
[2018-06-30] MEDS ORDERED: MIDAZOLAM HCL 2 MG/2 ML VIAL ONE (20:14)
[2018-06-30] MEDS: MIRTAZAPINE 15 MG TAB PO SCH (21:18)
[2018-06-30] MEDS: TAMSULOSIN HCL 0.4 MG CAP PO SCH (21:18)
[2018-07-01 04:00] VITALS: BP 153/67
--- NOTE | 2018-07-01 05:26 | Operative Report ---
DATE OF PROCEDURE: 06/30/2018 SURGEON: Alvarez Pantoja MD PROCEDURE: Colonoscopy and polypectomy. REFERRING PHYSICIAN: Hank Watt MD/Pam Alvarenga MD INDICATIONS FOR COLONOSCOPY: Anemia. MEDICATIONS: The patient was done under MAC, please see anesthesiologist's note. PROCEDURE IN DETAIL: With the patient in left lateral decubitus position, a flexible fiberoptic Olympus colonoscope was inserted into the rectum with ease and advanced all the way to the cecum. The scope was then withdrawn slowly. Mucosa overlying the cecum appeared to be within normal limits. Of note, prep was suboptimal with retained stools in the colon. Diverticular disease was pretty much noted throughout the colon. One polyp was snared from the descending colon. The rectum appeared to be within normal limits. The scope was then retroflexed into the distal rectum and moderate-sized internal hemorrhoids were noted, none of which was actively bleeding. The scope was then straightened out, it was subsequently withdrawn. The patient tolerated the procedure well. IMPRESSION: 1. Suboptimal prep. 2. Diverticulosis. 3. Descending colon polyp snared. 4. Internal hemorrhoids, none actively bleeding. PLAN: Follow up histology. Initiate high-fiber, low-fat diet. The patient might benefit from a followup colonoscopy in 3 years. Alvarez Pantoja MD [facility]/MODL /[id number] cc: MD Pam Duncan MD
[2018-07-01 06:20] LABS: ALBUMIN 3.3 g/dL (3.5-5.0); ALBUMIN/GLOBULIN RATIO 1.1 (0.8-2.0); ALKALINE PHOSPHATASE 79 IU/L (40-150); ANION GAP 12.4 mmol/L (8-16); BLOOD UREA NITROGEN 47 mg/dL (7-26); BUN/CREATININE RATIO 20 (6-25); CALCIUM 8.8 mg/dL (8.4-10.2); CARBON DIOXIDE 19 mmol/L (22-29); CHLORIDE 115 mmol/L (98-107); CREATININE, SERUM 2.41 mg/dL (0.72-1.25); EST GLOMERULAR FILTRATION RATE 26 ML/MIN (60-); GLUCOSE 113 mg/dL (74-118); POTASSIUM 4.4 mmol/L (3.5-5.1); SODIUM 142 mmol/L (136-145)
[2018-07-01 06:22] LABS: ALANINE AMINOTRANSFERASE < 6 IU/L (0-55)
--- NOTE | 2018-07-01 07:34 | NUR ---
Rcvd patient in report this am. Patient is asleep in bed at this time. No s/s of distress noted
[2018-07-01 08:00] VITALS: BP 156/79
[2018-07-01] MEDS: SERTRALINE HCL 100 MG TAB PO SCH (08:46)
[2018-07-01] MEDS: SODIUM BICARBONATE 650 MG TAB PO SCH (08:46)
[2018-07-01] MEDS: NIFEDIPINE CR 30 MG TAB PO SCH (08:46)
[2018-07-01] MEDS: INSULIN REGULAR, HUMAN 100 UNIT/1 ML 3ML VIAL SQ SCH (08:46)
--- NOTE | 2018-07-01 09:27 | NUR ---
IMM EXPLAINED, SIGNED AND ON CHART COPY TO PT IN CARE TRANSITION FOLDER
--- NOTE | 2018-07-01 10:15 | NUR ---
IV removed at this time from left AC. Pressure dressing applied
--- NOTE | 2018-07-01 10:25 | NUR ---
Patient discharged from facility to home. Patient assisted out via staff. Reviewed all discharge instructions with patient. No rx's needed. Patient to f/u with dr. thomas for a bone marrow biopsy. No s/s of distress
[2018-07-01 10:31] VITALS: BP 156/79
--- NOTE | 2018-07-01 11:44 | Consultation ---
DATE OF CONSULTATION: 06/30/2018 HISTORY OF PRESENT ILLNESS: Sukhjinder Poole is an 82-year-old male, referred to me for evaluation of pancytopenia. The patient had presented with weakness and shortness of breath, subsequently was found to be fairly anemic. Subsequently, referred to me for further evaluation and treatment. PAST MEDICAL HISTORY: History of hypertension, history of chronic renal failure, and history of BPH. SOCIAL HISTORY: Noncontributory. FAMILY HISTORY: Noncontributory. ALLERGIES: REPORTED NONE. MEDICATIONS: At this time consist of: 1. Sodium chloride. 2. Insulin. 3. Hydralazine. 4. Mirtazapine. 5. Zoloft. 6. Lorazepam. 7. Flomax. 8. Nifedipine. 9. Sodium bicarbonate. REVIEW OF SYSTEMS: HEENT: Normal. CARDIAC: History of hypertension. RESPIRATORY: Normal. GI: Pancytopenia, possibly because of cirrhosis and/or MDS. : History of BPH, history of chronic renal failure. MUSCULOSKELETAL: Normal. SKIN AND BREASTS: Normal. NEUROENDOCRINE: The patient at the present time on insulin. PHYSICAL EXAMINATION: GENERAL: Moderately developed male, fairly anemic. NECK: No palpable adenopathy. HEART: Within normal limits. LUNGS: Clear. ABDOMEN: Soft. RECTAL: Deferred. CENTRAL NERVOUS SYSTEM: Essentially normal. EXTREMITIES: There is underlying right axillary node 2 cm. LABORATORY DATA: Review of the lab shows hemoglobin of 5.9, hematocrit 18.6, MCV 97.9, MCHC slightly low at 31.7. RDW high at 17, white count 2180. Platelets are low at 101,000; however, the platelets dropped as low as 77,000. On 06/29/2018, after blood transfusion, the retic response is reasonable at 5.1%. The patient's blood sugar has been fluctuating between 128 to 165. Sodium 139, potassium 4.4, chloride 116, CO2 15, BUN 73, creatinine 2.9, calcium low at 8.3, bilirubin 0.3, SGOT 13, SGPT 6, alkaline phosphatase 98. B12 level is very high at 1027. Total protein 6.9, albumin 3.7, and globulin 3.2. IMAGING: Consists of CAT scan of the abdomen and pelvis, the patient has mild focal colonic wall thickening in the sigmoid colon. The prostate is enlarged, 5.3 x 4.1 cm. IMPRESSION: 1. Early iron deficiency anemia with a low MCHC of 31.7 and a high RDW of 17.4. 2. Neutropenia. 3. Thrombocytopenia. 4. Chronic renal failure. 5. Anemia of chronic disease. Low serum iron of 97 and a low iron binding capacity of 241. 6. Hypocalcemia. 7. Hyperkalemia initially; however, normalized. 8. Diverticulosis coli by CAT scan of the abdomen. 9. Possible sigmoid mass. 10. Splenomegaly by CAT scan of the abdomen. 11. Benign prostatic hypertrophy. 12. Possible MDS. 13. Hypertension. 14. Diabetes mellitus. 15. Major depression. 16. Lymphadenopathy. PLAN/COMMENTS/SUGGESTIONS: Suggest colonoscopy. Consider bone marrow as outpatient. Consider lymph node biopsy. Thank you very much for allowing me to participate in management of this patient. I will confine myself to Hematology. MD GERARD Kowalski/MODL /[id number] cc: MD Alvarez Torres MD Salman A Khan, MD
--- NOTE | 2018-07-01 12:13 | Discharge Summary ---
PRIMARY CARE PHYSICIAN: Pam Alvarenga M.D. CONSULTANTS: 1. Rosie Ratliff M.D. 2. Alvarez Pantoja M.D. 3. Willem Ling M.D. FINAL DIAGNOSES: 1. Chronic anemia, symptomatic, increasing shortness of breath, chronic blood loss, most likely secondary to diverticulosis without obvious bleed, status post colonoscopy. 2. Status post blood transfusion. 3. Pancytopenia, may need bone marrow biopsy as an outpatient. SUMMARY: The patient is an 82-year-old male with recurrent anemia. WBC 2.1, hemoglobin 8.7, hematocrit 27.0, and platelets 99. This is after 2 units of blood transfusion. When the patient came in, his hemoglobin was less than 6. He was symptomatic. The patient was seen by Dr. Ling. The patient did receive iron infusion. He will need a bone marrow biopsy to rule out for MDS as an outpatient. Discussed with Dr. Willem Ling at length. The patient to follow up with Dr. Alvarenga next week. He is status post colonoscopy for diverticulosis without overt bleed. He does have internal hemorrhoids as well. The patient is stable, discharged home today. Follow up as an outpatient. MD HARRY Duncan/HARMAN /[id number]
[2018-07-01] MEDS ORDERED: PROPOFOL IV EMULSION 10 MG/ML 50 ML VIAL ONE (13:21)
[2018-07-01] MEDS ORDERED: HYOSCYAMINE SULFATE 0.5 MG/ML INJ ONE (13:21)
== END 2018-07-01 10:26 | disposition home or self-care (01) | DRG 391 ==
LOC: ER 14:07 → ERHOLD 15:15 → MED/SURG 17:07
PROVIDERS: ADMIT Internal Medicine; ATTEND Internal Medicine
PROC: 30233N1 Transfusion of Nonautologous Red Blood Cells into Peripheral Vein, Percutaneous Approach (ICD-10-PCS; 2018-06-27)
PROC: 0DBM8ZX Excision of Descending Colon, Via Natural or Artificial Opening Endoscopic, Diagnostic (ICD-10-PCS; principal; 2018-06-30 16:30)
DX: K57.90 Diverticulosis of intestine, part unspecified, without perforation or abscess without bleeding (principal); N17.0 Acute kidney failure with tubular necrosis; A52.79 Other symptomatic late syphilis; D61.818 Other pancytopenia; N18.4 Chronic kidney disease, stage 4 (severe); N40.0 Benign prostatic hyperplasia without lower urinary tract symptoms; E87.5 Hyperkalemia; I12.9 Hypertensive chronic kidney disease with stage 1 through stage 4 chronic kidney disease, or unspecified chronic kidney disease; E11.22 Type 2 diabetes mellitus with diabetic chronic kidney disease; Z79.4 Long term (current) use of insulin; F41.9 Anxiety disorder, unspecified; R16.1 Splenomegaly, not elsewhere classified; K63.5 Polyp of colon; K64.8 Other hemorrhoids; D63.8 Anemia in other chronic diseases classified elsewhere; D69.6 Thrombocytopenia, unspecified; D46.9 Myelodysplastic syndrome, unspecified; R59.1 Generalized enlarged lymph nodes; D50.0 Iron deficiency anemia secondary to blood loss (chronic)
CPT/HCPCS: 36415; 45385; 74176; 80053; 82270; 82607; 82728; 82746; 82948; 83036; 83540; 83735; 84100; 84207; 84443; 84466; 85025; 85045; 85610; 85730; 86850; 86900; 86920; 88305; 96372; 99284; J1980; J2250; J7050; P9016

== ENCOUNTER → 2018-11-28 | Day surgery (SDC) | payer MEDICARE ==
[~2018-11-28] MED LIST changes: +ASPIR 8181 MG; +BUPIVACAINE 0.25% 30ML SDV INJ ONE; +DEXAMETHASONE SOD PHOS INJ 4 MG/ML VIAL ONE; +GLIPIZIDE5 MG PO; +HEPARIN SOD (PORCINE) 5,000 UNIT/ML VIAL ONE; +HYDRALAZINE HCL 20 MG/ML VIAL ONE; +LIDOCAINE HCL 2% LOCAL INJ 5 ML SDV VIAL INJ ONE; +LOSARTAN POTAS100 MG PO; +ONDANSETRON HCL INJ 2MG/ML 2ML 2 MG/ML VIAL ONE; +PROPOFOL IV EMULSION 10 MG/ML 20 ML VIAL ONE; +REMERON30 MG PO; +SEVOFLURANE INHAL SOLN 250 ML PEN BTL ONE; +SIMVASTATIN40 MG PO; +SODIUM CHLORIDE 0.9% 500ML 500 ML ONE; +SUCRALFATE1 GM PO
[2018-11-28 11:58] LABS: EOSINOPHILS # (AUTO) 0.2 (0.0-0.4); EOSINOPHILS % 5.1 % (0.0-6.0); HEMATOCRIT 25.8 % (38.2-49.6); HEMOGLOBIN 8.3 g/dL (14.0-18.0); LYMPHOCYTES # (AUTO) 0.6 (1.0-3.2); LYMPHOCYTES % 19.2 % (18.0-39.1); MEAN CORPUSCULAR HEMOGLOBIN 26.1 pg (28-32); MEAN CORPUSCULAR HGB CONC 32.2 g/dL (31-35); MEAN CORPUSCULAR VOLUME 81.1 fL (81-99); MONOCYTES # (AUTO) 0.2 (0.2-0.8); MONOCYTES % 5.4 % (4.4-11.3); NEUTROPHILS # (AUTO) 2.2 (2.1-6.9); PLATELET COUNT 148 x10e3/uL (140-360); RED BLOOD COUNT 3.18 x10e6/uL (4.3-5.7); RED CELL DISTRIBUTION WIDTH 14.9 % (11.7-14.4)
[2018-11-28 12:14] LABS: ANION GAP 13.7 mmol/L (8-16); CALCIUM 9.3 mg/dL (8.4-10.2); CREATININE, SERUM 4.41 mg/dL (0.72-1.25); POTASSIUM 4.7 mmol/L (3.5-5.1)
--- NOTE | 2018-11-28 15:04 | Operative Report ---
DATE OF PROCEDURE: 11/28/2018 SURGEON: Jose Dan MD PREOPERATIVE DIAGNOSIS: Lack of IV access. POSTOPERATIVE DIAGNOSIS: Lack of IV access. OPERATION PERFORMED: Placement of left subclavian venous access port under C-arm guidance. ANESTHESIA: General. COMPLICATIONS: None. ESTIMATED BLOOD LOSS: Minimal. DESCRIPTION OF PROCEDURE: With the patient lying in bed in the supine position under good general anesthesia, the left chest and neck were prepped with Betadine solution and draped in the usual manner. Standard left subclavian venipuncture was then performed in the Trendelenburg position and a guidewire was advanced into central venous position. Using the C-arm, the left lung was found to be fully expanded and the tip of the guidewire was confirmed to be at the level of the superior vena cava. A pocket was then created in the left anterior chest and the catheter was threaded to the subclavian position. The reservoir was then anchored to the anterior chest wall with interrupted sutures of 2-0 silk. The reservoir and catheter were fully heparinized and the catheter was prepped, cut to the appropriate length. The peel-away sheath was then placed over the guidewire and the guidewire was removed. The catheter was threaded through the peel-away sheath and perfect introduction was made without any difficulty. The peel-away sheath was removed. There was good blood return, and the reservoir and catheter were fully heparinized. Using the C-arm, the left lung was found to be fully expanded and the tip of the catheter was confirmed to be at the level of the superior vena cava. The wounds were then closed in layers. The subcutaneous tissue was approximated with 3-0 and 4-0 Vicryl and the skin was closed with subcuticular 5-0 Vicryl. Benzoin, Steri-Strips, and dressings were applied. The sponge, lap, and needle counts were correct. The patient tolerated the procedure well and returned to the recovery room in stable condition. MD SHAN Haro/JEETL /[id number]
[2018-11-28 15:35] VITALS: BP 159/70
== END | disposition home or self-care (01) ==
LOC: OR 10:49
PROVIDERS: ATTEND Surgery
DX: Z45.2 Encounter for adjustment and management of vascular access device (principal); E11.22 Type 2 diabetes mellitus with diabetic chronic kidney disease; I12.9 Hypertensive chronic kidney disease with stage 1 through stage 4 chronic kidney disease, or unspecified chronic kidney disease; N18.9 Chronic kidney disease, unspecified; F32.9 Major depressive disorder, single episode, unspecified; F41.9 Anxiety disorder, unspecified; Z79.82 Long term (current) use of aspirin; Z79.84 Long term (current) use of oral hypoglycemic drugs
CPT/HCPCS: 36561; C1751; 36415; 77001; 80048; 82948; 85025; 93005; J0360; J1100; J1644; J2001; J2405; J7040

== ENCOUNTER 2018-12-15 09:47 | Inpatient (IN) | payer MEDICARE ==
[~2018-12-15] VITALS: Ht 182.9 cm; Wt 76.3 kg
[~2018-12-15 09:47] MED LIST changes: -BUPIVACAINE 0.25% 30ML SDV INJ ONE; -DEXAMETHASONE SOD PHOS INJ 4 MG/ML VIAL ONE; -HEPARIN SOD (PORCINE) 5,000 UNIT/ML VIAL ONE; -HYDRALAZINE HCL 20 MG/ML VIAL ONE; -LIDOCAINE HCL 2% LOCAL INJ 5 ML SDV VIAL INJ ONE; -ONDANSETRON HCL INJ 2MG/ML 2ML 2 MG/ML VIAL ONE; -PROPOFOL IV EMULSION 10 MG/ML 20 ML VIAL ONE; -SEVOFLURANE INHAL SOLN 250 ML PEN BTL ONE; -SODIUM CHLORIDE 0.9% 500ML 500 ML ONE
[2018-12-15 10:26] LABS: EOSINOPHILS # (AUTO) 0.1 (0.0-0.4); EOSINOPHILS % 1.3 % (0.0-6.0); HEMATOCRIT 25.8 % (38.2-49.6); HEMOGLOBIN 8.6 g/dL (14.0-18.0); LYMPHOCYTES # (AUTO) 0.6 (1.0-3.2); LYMPHOCYTES % 7.9 % (18.0-39.1); MEAN CORPUSCULAR HEMOGLOBIN 26.6 pg (28-32); MEAN CORPUSCULAR HGB CONC 33.3 g/dL (31-35); MEAN CORPUSCULAR VOLUME 79.9 fL (81-99); MONOCYTES # (AUTO) 0.3 (0.2-0.8); MONOCYTES % 3.3 % (4.4-11.3); NEUTROPHILS # (AUTO) 6.5 (2.1-6.9); NEUTROPHILS % 86.1 % (38.7-80.0); PLATELET COUNT 173 x10e3/uL (140-360); RED BLOOD COUNT 3.23 x10e6/uL (4.3-5.7); RED CELL DISTRIBUTION WIDTH 15.4 % (11.7-14.4)
[2018-12-15 10:38] LABS: INR 1.21; PROTHROMBIN TIME 15.9 seconds (11.9-14.5)
[2018-12-15 10:39] LABS: PARTIAL THROMBOPLASTIN TIME 45.1 seconds (23.8-35.5)
[2018-12-15 10:48] LABS: ALBUMIN 2.9 g/dL (3.5-5.0); ALBUMIN/GLOBULIN RATIO 0.6 (0.8-2.0); ANION GAP 17.7 mmol/L (8-16); CALCIUM 8.9 mg/dL (8.4-10.2); CREATININE, SERUM 4.54 mg/dL (0.72-1.25); POTASSIUM 3.7 mmol/L (3.5-5.1)
[2018-12-15 10:55] LABS: CREATINE KINASE MB 1.7 ng/mL (0-5.0)
[2018-12-15] MEDS ORDERED: VANCOMYCIN 1GM/NS 250 ML 250 ML IV ONE (11:00)
[2018-12-15 11:20] LABS: BILIRUBIN,URINE NEGATIVE (NEGATIVE); CLARITY,URINE CLEAR (CLEAR); COLOR,URINE YELLOW (YELLOW); KETONES,URINE NEGATIVE (NEGATIVE); LEUKOCYTE ESTERASE ,URINE NEGATIVE (NEGATIVE); NITRITE,URINE NEGATIVE (NEGATIVE); URINE UROBILINOGEN 0.2 mg/dL (0.2 - 1)
[2018-12-15 11:26] LABS: PROTEIN,URINE DIPSTICK 2+ (NEGATIVE)
[2018-12-15] MEDS ORDERED: ONDANSETRON HCL INJ 2MG/ML 2ML 2 MG/ML VIAL IV PRN (11:30)
[2018-12-15] MEDS ORDERED: DEXTROSE 50% SYRINGE 50 ML IV PRN (11:30)
--- NOTE | 2018-12-15 11:30 | Diagnostic Imaging Report ---
EXAMINATION: CHEST SINGLE (PORTABLE) INDICATION: Chest port infection COMPARISON: Chest radiograph of 07/20/2011 FINDINGS: LINES/TUBES:Left chest port with catheter tip at the superior vena cava. LUNGS:The lungs are moderately inflated. Mild bibasilar patchy opacities. PLEURA:No pleural effusion or pneumothorax. MEDIASTINUM:The cardiac silhouette appears at the upper limits of normal for size. Atherosclerotic calcifications of the thoracic aorta. BONES/SOFT TISSUES:No acute osseous injury. ABDOMEN:No free air under the diaphragm. IMPRESSION: Left chest port with tip terminating in the SVC. Bibasilar patchy opacities, most likely subsegmental atelectasis. Signed by: Maris Cerrato MD on 12/15/2018 11:27 AM
[2018-12-15 11:34] LABS: BACTERIA,URINE RARE /HPF; EPITHELIAL CELLS,URINE FEW /LPF
[2018-12-15] MEDS: PIPERACILLIN/TAZO 2.25 GM 50 ML IV SCH ×2 (11:45→18:00)
--- NOTE | 2018-12-15 11:45 | NUR ---
REC'D PT IN RM 8 FOR INFECTED PORT TO THE LEFT CHEST
[2018-12-15] MEDS: INSULIN LISPRO 100 UNIT/1 ML 3ML VIAL SQ SCH ×4 (14:14→20:43)
--- NOTE | 2018-12-15 17:33 | NUR ---
call placed to dr. grewal for this pt. re home meds
--- NOTE | 2018-12-15 17:53 | NUR ---
2nd call to dr. brown
[2018-12-15] MEDS: CLINDAMYCIN 600MG / 50ML 50 ML IV SCH (18:00)
--- NOTE | 2018-12-15 18:25 | NUR ---
DR. CARD IN TO SEE THE PT.
[2018-12-15] MEDS ORDERED: SODIUM CHLORIDE 0.9% 50ML 50 ML ONE (18:43)
[2018-12-15 19:21] LABS: CREATINE KINASE MB 1.6 ng/mL (0-5.0)
[2018-12-15] MEDS: SIMVASTATIN 40 MG TAB PO SCH (20:43)
[2018-12-15] MEDS ORDERED: NON-FORMULARY MEDICATION (Mirtazapine (Remeron) 30 MG) PO SCH (21:00)
--- NOTE | 2018-12-15 23:06 | NUR ---
reported off to adan tamayo for continuity of care.
[2018-12-16] MEDS: CLINDAMYCIN 600MG / 50ML 50 ML IV SCH ×3 (03:01→17:57)
[2018-12-16] MEDS: PIPERACILLIN/TAZO 2.25 GM 50 ML IV SCH ×3 (03:24→17:14)
[2018-12-16 03:42] LABS: CREATINE KINASE MB 1.7 ng/mL (0-5.0)
[2018-12-16] MEDS: MIRTAZAPINE 15 MG TAB PO SCH ×2 (03:55→21:00)
--- NOTE | 2018-12-16 04:00 | NUR ---
REPORT RECEIVED FROM EMELY LARKIN
[2018-12-16 05:46] LABS: EOSINOPHILS # (AUTO) 0.1 (0.0-0.4); EOSINOPHILS % 1.7 % (0.0-6.0); HEMOGLOBIN 7.5 g/dL (14.0-18.0); LYMPHOCYTES # (AUTO) 0.5 (1.0-3.2); LYMPHOCYTES % 11.8 % (18.0-39.1); MEAN CORPUSCULAR HEMOGLOBIN 26.6 pg (28-32); MEAN CORPUSCULAR HGB CONC 32.6 g/dL (31-35); MEAN CORPUSCULAR VOLUME 81.6 fL (81-99); MONOCYTES # (AUTO) 0.2 (0.2-0.8); MONOCYTES % 4.5 % (4.4-11.3); NEUTROPHILS # (AUTO) 3.4 (2.1-6.9); NEUTROPHILS % 79.9 % (38.7-80.0); PLATELET COUNT 160 x10e3/uL (140-360); RED BLOOD COUNT 2.82 x10e6/uL (4.3-5.7); RED CELL DISTRIBUTION WIDTH 15.6 % (11.7-14.4)
[2018-12-16 06:07] LABS: ALBUMIN 2.6 g/dL (3.5-5.0); ALBUMIN/GLOBULIN RATIO 0.6 (0.8-2.0); ANION GAP 17.3 mmol/L (8-16); CALCIUM 8.7 mg/dL (8.4-10.2); CREATININE, SERUM 4.77 mg/dL (0.72-1.25); POTASSIUM 4.3 mmol/L (3.5-5.1)
--- NOTE | 2018-12-16 06:38 | NUR ---
PT REMAINS AAOX3 WITH NAD NOTED; RESP ARE EVEN AND UNLABORED, O2 SAT RA 100%; PT DENIES ANY NEEDS OR CONCERNS AT THIS TIME
[2018-12-16 08:01] LABS: PLATELET ESTIMATE SLIGHTLY DECREASED; RBC MORPHOLOGY COMMENT NORMAL
[2018-12-16] MEDS: ASPIRIN 81 MG CHEW TAB PO SCH (08:57)
[2018-12-16] MEDS: GLIPIZIDE 5 MG TAB PO SCH (08:57)
[2018-12-16] MEDS: LOSARTAN POTASSIUM 100 MG TAB PO SCH (08:57)
[2018-12-16] MEDS: INSULIN LISPRO 100 UNIT/1 ML 3ML VIAL SQ SCH ×4 (08:57→21:00)
[2018-12-16] MEDS: NIFEDIPINE CR 30 MG TAB PO SCH (08:57)
[2018-12-16] MEDS: SERTRALINE HCL 100 MG TAB PO SCH (08:58)
[2018-12-16] MEDS ORDERED: SERTRALINE HCL 100 MG PO SCH (09:00)
[2018-12-16] MEDS ORDERED: NIFEDIPINE 60 MG PO SCH (09:00)
[2018-12-16] MEDS: LORAZEPAM 1 MG TAB PO PRN ×2 (09:07→21:16)
--- NOTE | 2018-12-16 12:30 | NUR ---
Received patient from ER. Respiration even and unlabored without SOB. Call light in reach.
[2018-12-16 12:43] VITALS: BP 95/68
[2018-12-16 12:45] VITALS: BP 136/96
[2018-12-16 13:02] VITALS: BP 136/96
--- NOTE | 2018-12-16 16:25 | NUR ---
Visit made by the Spiritual Care Department Pastoral Visitor, Marie Bautista. PV provided pastoral presence, prayer, hospitality, and supportive listening. Pastoral Visitor informed pt/family of the scope of Tightening Machine Operator Services and availability. [employer] Manager Spiritual Care Department O: [phone] Pager: [phone] ([phone] number calling from)
[2018-12-16 17:02] VITALS: BP 121/51
[2018-12-16] MEDS ORDERED: SODIUM CHLORIDE 0.9% 250ML 250 ML ONE (17:06)
--- NOTE | 2018-12-16 19:06 | NUR ---
Report given to hotel night auditor. Patient is lying in bed with eyes open. Respiration even and unlabored without SOB. Call light in reach.
--- NOTE | 2018-12-16 19:38 | NUR ---
Received change of shift report from AM nurse. Walking rounds completed.
[2018-12-16 19:55] VITALS: BP 101/55
[2018-12-16] MEDS: SIMVASTATIN 40 MG TAB PO SCH (21:00)
[2018-12-17] VITALS (10 sets, daily range): BP systolic 122–150; BP diastolic 60–70
--- NOTE | 2018-12-17 | NUR ---
Patient in bed. Denies pain at this time. AAOx3 with CHITINA. IV intact. Continue monitor.
[2018-12-17] MEDS: PIPERACILLIN/TAZO 2.25 GM 50 ML IV SCH (01:58)
[2018-12-17] MEDS: CLINDAMYCIN 600MG / 50ML 50 ML IV SCH ×2 (01:58→10:29)
[2018-12-17] MEDS: INSULIN LISPRO 100 UNIT/1 ML 3ML VIAL SQ SCH ×4 (07:30→21:00)
[2018-12-17] MEDS: LOSARTAN POTASSIUM 100 MG TAB PO SCH (09:00)
[2018-12-17] MEDS ORDERED: SODIUM CHLORIDE 0.9% 250ML 250 ML IV ONE (09:45)
[2018-12-17] MEDS: ASPIRIN 81 MG CHEW TAB PO SCH (10:27)
[2018-12-17] MEDS: GLIPIZIDE 5 MG TAB PO SCH (10:27)
[2018-12-17] MEDS: NIFEDIPINE CR 30 MG TAB PO SCH (10:28)
[2018-12-17] MEDS: SERTRALINE HCL 100 MG TAB PO SCH (10:28)
--- NOTE | 2018-12-17 13:19 | Consultation ---
DATE OF CONSULTATION: 12/17/2018 ID Consult REASON FOR CONSULTATION: Infected Port-A-Cath. Thank you, Dr. Ling, for asking me to see this patient. HISTORY OF PRESENT ILLNESS: The patient is an 83-year-old man, referred for infected Port-A-Cath. He was admitted through the emergency department with cellulitis of the left chest. He presented to the emergency department on 12/15/2018 with swelling, redness, and discharge of the left chest Port-A-Cath site. He had a Port-A-Cath placement about 2 weeks earlier. Several days later, he noted serosanguineous discharge. He was evaluated outpatient and treated with oral antibiotics without improvement. In the emergency department, he was noted to have temperature of 98.1 degrees Fahrenheit, pulse rate 101, respiratory rate 20, blood pressure 133/58, and oxygen saturation 97% on room air. Initial laboratory studies showed blood leukocyte count of 7590, BUN 72, and creatinine 4.5. PAST MEDICAL HISTORY: Diabetes mellitus type 2, hypertension, hyperlipidemia, chronic kidney disease, myelodysplastic syndrome, ? depression and anxiety. PAST SURGICAL HISTORY: Cataract surgery, tonsillectomy, Port-A-Cath placement, and transurethral resection of the prostate. ALLERGIES: NO KNOWN DRUG ALLERGIES. MEDICATIONS: The current antibiotics are Zosyn 2.25 g IV piggyback q.8 hours and clindamycin 600 mg IV piggyback q.8 hours. IMMUNIZATION: The patient claimed that he received influenza and pneumococcal vaccination prior to admission. FAMILY HISTORY: Significant for hypertension. SOCIAL HISTORY: No alcohol or recreational drug use. He quit smoking cigarettes about 25 years ago. REVIEW OF SYSTEMS: As per history of present illness. The patient denies fever, chills, cough, shortness of breath, nausea, vomiting, diarrhea, abdominal pain, and dysuria. PHYSICAL EXAMINATION: GENERAL: No acute distress. VITAL SIGNS: T-max 97.9, pulse rate 72, respiratory rate 20, blood pressure 135/60, and weight 182 pounds. HEENT: Normocephalic. There is no icterus or injection of conjunctivae. There is no ear or nasal discharge. Moist oral mucosa. No pharyngeal erythema or exudate. NECK: Supple. No meningismus. CHEST: The left upper chest, Port-A-Cath site is with serosanguineous discharge with erythema and purulent discharge. LUNGS: Clear to auscultation bilaterally. HEART: Normal S1 and S2. Regular. ABDOMEN: Soft and nontender. EXTREMITIES: There is no edema, clubbing, or cyanosis. SKIN: There is no acute erythema. INTERNATIONAL TRADE COMPLIANCE MANAGER: Awake, alert, and oriented to person, place, and time. Nonfocal. LABORATORY AND DIAGNOSTICS: WBC 4230, hemoglobin 7.5, platelet 160,000, neutrophils 79.9, lymphocytes 11.8, monocytes 4.5, eosinophils 1.7, and basophils 0. BUN 80, creatinine 4.77, and blood glucose 144. 12/15/2018, blood culture no growth. 12/15/2018, wound culture grew methicillin-resistant Staphylococcus aureus. IMPRESSION/DIAGNOSES: 1. Port-A-Cath pocket infection and anterior left chest wall cellulitis due to methicillin-resistant Staphylococcus aureus, present on admission. 2. Immunosuppression due to myelodysplastic syndrome. 3. Chronic kidney disease, stage 4. 4. Diabetes mellitus type 2, controlled. 5. Hyperlipidemia. 6. Hypertension. PLAN: 1. Change antibiotics to daptomycin 4 mg/kg IV piggyback q.8 hours. Linezolid was considered, but the patient is on Prozac. Also, hematologic side effect is concerned. The patient will be switched to minocycline 100 mg orally twice a day for 10 days when ready for discharge. Bactrim orally is less suitable because of hematologic side effects. 2. Await surgical evaluation for explantation of the Port-A-Cath. 3. Check MRSA screen of the nares. MD JAROD Verdugo/HARMAN /[id number]
[2018-12-17] MEDS: DAPTOMYCIN IV SCH (14:33)
[2018-12-17] MEDS: SODIUM CHLORIDE 0.9% IV SCH (14:33)
[2018-12-17] MEDS ORDERED: SODIUM CHLORIDE 0.9% 500ML 500 ML ONE (16:02)
--- NOTE | 2018-12-17 17:00 | NUR ---
First unit of PRBC initiated at this time. Will recheck VS and monitor for s/s of transfusion reaction.
--- NOTE | 2018-12-17 18:20 | NUR ---
notified regarding temp of 100.1 during blood administration. New orders received at this time, given order to proceed with blood transfusion.
--- NOTE | 2018-12-17 19:00 | NUR ---
received report from day nurse. patient is resting comfortably in the bed. bed is in the lowest position and call cho is within reach. will continue to monitor patient.
[2018-12-17] MEDS ORDERED: ACETAMINOPHEN 325 MG TAB PO ONE (19:30)
[2018-12-17] MEDS: MIRTAZAPINE 15 MG TAB PO SCH (21:57)
[2018-12-17] MEDS: SIMVASTATIN 40 MG TAB PO SCH (21:57)
[2018-12-17] MEDS ORDERED: SODIUM CHLORIDE 0.9% 250ML 250 ML ONE (22:56)
--- NOTE | 2018-12-17 23:37 | NUR ---
second unit of blood is transfusing. no adverse reactions noted. will continue to monitor infusion process.
[2018-12-18] VITALS (10 sets, daily range): BP systolic 137–165; BP diastolic 60–77
--- NOTE | 2018-12-18 02:15 | NUR ---
second unit of blood is done infusing. no adverse reaction noted. will continue to monitor patient.
--- NOTE | 2018-12-18 06:53 | NUR ---
report given to day nurse. patient is resting comfortably in bed. bed is in lowest position and call light is within reach.
[2018-12-18] MEDS: GLIPIZIDE 5 MG TAB PO SCH (07:30)
[2018-12-18] MEDS: INSULIN LISPRO 100 UNIT/1 ML 3ML VIAL SQ SCH ×4 (07:30→21:00)
[2018-12-18] MEDS: NIFEDIPINE CR 30 MG TAB PO SCH (07:37)
[2018-12-18] MEDS: LOSARTAN POTASSIUM 100 MG TAB PO SCH (07:37)
[2018-12-18] MEDS: SERTRALINE HCL 100 MG TAB PO SCH (07:37)
[2018-12-18] MEDS: ASPIRIN 81 MG CHEW TAB PO SCH (07:37)
[2018-12-18 07:48] LABS: BASOPHILS % 0.2 % (0.0-1.0); EOSINOPHILS # (AUTO) 0.1 (0.0-0.4); EOSINOPHILS % 1.9 % (0.0-6.0); HEMATOCRIT 28.3 % (38.2-49.6); HEMOGLOBIN 9.4 g/dL (14.0-18.0); LYMPHOCYTES # (AUTO) 0.4 (1.0-3.2); LYMPHOCYTES % 7.5 % (18.0-39.1); MEAN CORPUSCULAR HEMOGLOBIN 27.5 pg (28-32); MEAN CORPUSCULAR HGB CONC 33.2 g/dL (31-35); MEAN CORPUSCULAR VOLUME 82.7 fL (81-99); MONOCYTES # (AUTO) 0.2 (0.2-0.8); NEUTROPHILS # (AUTO) 4.6 (2.1-6.9); NEUTROPHILS % 85.9 % (38.7-80.0); PLATELET COUNT 156 x10e3/uL (140-360); RED BLOOD COUNT 3.42 x10e6/uL (4.3-5.7); RED CELL DISTRIBUTION WIDTH 15.6 % (11.7-14.4)
[2018-12-18] MEDS: LORAZEPAM 1 MG TAB PO PRN (10:16)
[2018-12-18] MEDS ORDERED: LIDOCAINE HCL 1% LOCAL INJ 20 ML VIAL ONE (12:44)
[2018-12-18] MEDS ORDERED: BUPIVACAINE 0.25%/EPI 30ML SDV INJ ONE (13:23)
[2018-12-18] MEDS ORDERED: ACETAMINOPHEN 1000 MG/100 ML IV PRN (14:00)
[2018-12-18] MEDS ORDERED: HYDROCODONE/APAP 5MG-325MG TAB PO PRN (14:00)
[2018-12-18] MEDS ORDERED: ONDANSETRON HCL INJ 2MG/ML 2ML 2 MG/ML VIAL ONE (14:26)
[2018-12-18] MEDS ORDERED: LIDOCAINE HCL 2% LOCAL INJ 5 ML SDV VIAL INJ ONE (14:26)
[2018-12-18] MEDS ORDERED: DEXAMETHASONE SOD PHOS INJ 4 MG/ML VIAL ONE (14:26)
[2018-12-18] MEDS ORDERED: PROPOFOL IV EMULSION 10 MG/ML 20 ML VIAL ONE (14:26)
[2018-12-18] MEDS ORDERED: SEVOFLURANE INHAL SOLN 250 ML PEN BTL ONE (14:26)
[2018-12-18] MEDS ORDERED: FENTANYL CITRATE/PF 100MCG/2 ML INJ ONE (18:08)
--- NOTE | 2018-12-18 20:23 | Operative Report ---
DATE OF PROCEDURE: 12/18/2018 SURGEON: Jose Dan MD PREOPERATIVE DIAGNOSIS: Infected venous access port. POSTOPERATIVE DIAGNOSIS: Infected venous access port. OPERATION PERFORMED: Removal of venous access port. ANESTHESIA: General. COMPLICATIONS: None. ESTIMATED BLOOD LOSS: Minimal. DESCRIPTION OF PROCEDURE: With the patient lying in bed in the supine position, under good general anesthesia, the left chest was prepped with Betadine solution and draped in the usual manner. An incision was made over the port and immediately some purulent material was encountered and this was cultured. The capsule of the Port-A-Cath was then opened and there was some clots contained within the cavity, this is probably an infected hematoma of the area likely secondary to some of the patient's clotting issues. The 4 sutures were in the Port-A-Cath in place were then removed and the Port-A-Cath was removed without any difficulty. The cavity was then divided. Hemostasis was then ascertained. The wound was then copiously irrigated with dilute Betadine solution. The subcutaneous tissue was then reapproximated with 2-0 chromic. A quarter-inch [place] drain was left in the wound and the skin was closed with interrupted vertical mattress sutures of 3-0 nylon. A dressing was applied. The sponge, lap, and needle counts were correct. The patient tolerated the procedure well and returned to the recovery room in stable condition. Jose Dan MD JLR/MODL /[id number]
[2018-12-18] MEDS: SIMVASTATIN 40 MG TAB PO SCH (22:57)
[2018-12-18] MEDS: MIRTAZAPINE 15 MG TAB PO SCH (22:57)
[2018-12-19] VITALS (8 sets, daily range): BP systolic 131–168; BP diastolic 63–86
[2018-12-19 06:40] LABS: BASOPHILS % 0.3 % (0.0-1.0); EOSINOPHILS # (AUTO) 0.1 (0.0-0.4); EOSINOPHILS % 2.4 % (0.0-6.0); HEMATOCRIT 27.8 % (38.2-49.6); LYMPHOCYTES # (AUTO) 0.6 (1.0-3.2); LYMPHOCYTES % 21.8 % (18.0-39.1); MEAN CORPUSCULAR HEMOGLOBIN 27.2 pg (28-32); MEAN CORPUSCULAR HGB CONC 32.4 g/dL (31-35); MONOCYTES # (AUTO) 0.1 (0.2-0.8); MONOCYTES % 2.8 % (4.4-11.3); NEUTROPHILS # (AUTO) 2.1 (2.1-6.9); NEUTROPHILS % 71.7 % (38.7-80.0); PLATELET COUNT 156 x10e3/uL (140-360); RED BLOOD COUNT 3.31 x10e6/uL (4.3-5.7); RED CELL DISTRIBUTION WIDTH 15.6 % (11.7-14.4)
[2018-12-19 06:56] LABS: ANION GAP 15.5 mmol/L (8-16); CALCIUM 8.5 mg/dL (8.4-10.2); CREATININE, SERUM 5.33 mg/dL (0.72-1.25); POTASSIUM 4.5 mmol/L (3.5-5.1)
--- NOTE | 2018-12-19 07:23 | NUR ---
report given to day nurse. patient is resting comfortably in bed. bed is in lowest position and call light is within reach.
[2018-12-19] MEDS: INSULIN LISPRO 100 UNIT/1 ML 3ML VIAL SQ SCH ×4 (07:30→20:13)
--- NOTE | 2018-12-19 07:37 | NUR ---
PATIENT IN BED WITH HEAD OF BED ELEVATED WATCHING TV, NO DISTRESS NOTED. DENIED PAIN AT THIS TIME. SCD IN PLACE, DISCOLORATION TO BOTH ARMS. BED IN LOWER POSITION, CALL LIGHT AT REACH.
[2018-12-19] MEDS: GLIPIZIDE 5 MG TAB PO SCH (07:45)
[2018-12-19] MEDS: SERTRALINE HCL 100 MG TAB PO SCH (09:17)
[2018-12-19] MEDS: ASPIRIN 81 MG CHEW TAB PO SCH (09:17)
[2018-12-19] MEDS: NIFEDIPINE CR 30 MG TAB PO SCH (09:17)
[2018-12-19] MEDS: LOSARTAN POTASSIUM 100 MG TAB PO SCH (09:17)
[2018-12-19 09:32] LABS: EOSINOPHILS % (MANUAL) 2 % (0-7); LYMPHOCYTES % (MANUAL) 20 % (19-48); MONOCYTES % (MANUAL) 3 % (3.4-9.0); NEUTROPHILS % (MANUAL) 75 % (40-74)
[2018-12-19 09:33] LABS: ANISOCYTOSIS SLIGHT; PLATELET ESTIMATE ADEQUATE; PLATELET MORPHOLOGY COMMENT NORMAL; RBC MORPHOLOGY COMMENT NORMAL
--- NOTE | 2018-12-19 12:16 | NUR ---
PATIENT OUT OF BED TO CHAIR READING HIS NEWS PAPER, NO COMPLAIN VOICED. CALL LIGHT AT REACH. INSTRUCTED TO CALL FOR ASSISTANCE NEEDED.
[2018-12-19] MEDS: SODIUM CHLORIDE 0.9% IV SCH (14:00)
[2018-12-19] MEDS: DAPTOMYCIN IV SCH (14:00)
--- NOTE | 2018-12-19 16:35 | NUR ---
PATIENT ASSISTED TO THE RESTROOM AND BACK TO BED. ALL PERSONAL ITEMS CLOSE TO PATIENT. CALL LIGHT AT REACH.
--- NOTE | 2018-12-19 19:19 | Progress Note ---
DATE: 12/19/2018 SUBJECTIVE: I met the patient in the bedside chair. He is alert. His sensorium is clear. He has no pain complaints. No respiratory, gastrointestinal, or genitourinary complaints. No adverse medication reaction reported. OBJECTIVE: VITAL SIGNS: In the past 24 hours, maximum temperature was up to 99 degrees Fahrenheit. He is hemodynamically stable. HEENT: He has no gross pallor. No obvious icterus. No oropharyngeal lesions. NECK: Supple. CHEST: Symmetric with Port-A-Cath wound dressing is intact and clean in the left chest. HEART: Sounds are regular. There is no new murmur. ABDOMEN: Soft, nontender. Bowel sounds are normal. EXTREMITIES: There is no acute erythema of his extremities. LABORATORY DATA: His white count is 7.5 on December 15, 5.3 on December 18, 2.8 currently; hemoglobin 9.0; platelet count 156; and serum creatinine 5.3. Wound culture from December 15 grew methicillin-resistant Staph aureus. Wound culture from December 18 is growing Staph aureus. IMPRESSION AND PLAN: He is on treatment for an infected Port-A-Cath in the left chest that has been removed due to methicillin-resistant Staph aureus. Blood cultures collected on December 15 showed no growth. Urine cultures show no growth. The patient is afebrile. He has end-stage renal disease. I suggest continue current antibiotic treatment. Continue local wound care. MD REESE Farah/HARMAN /[id number]
[2018-12-19] MEDS: MIRTAZAPINE 15 MG TAB PO SCH (20:13)
[2018-12-19] MEDS: SIMVASTATIN 40 MG TAB PO SCH (20:13)
[2018-12-20] VITALS (7 sets, daily range): BP systolic 135–159; BP diastolic 63–74
--- NOTE | 2018-12-20 07:09 | NUR ---
RECEIVED REPORT FROM OFF GOING NURSE. WALKING ROUNDS DONE. PATIENT IS RESTING IN BED. NO ACUTE DISTRESS NOTED. PATIENT DENIES PAIN OR DISCOMFORT. CALL LIGHT WITHIN REACH. BED IN THE LOWEST POSITION.
[2018-12-20] MEDS: INSULIN LISPRO 100 UNIT/1 ML 3ML VIAL SQ SCH ×4 (07:30→21:00)
[2018-12-20] MEDS: GLIPIZIDE 5 MG TAB PO SCH (08:56)
[2018-12-20] MEDS: SERTRALINE HCL 100 MG TAB PO SCH (08:56)
[2018-12-20] MEDS: ASPIRIN 81 MG CHEW TAB PO SCH (08:56)
[2018-12-20] MEDS: LOSARTAN POTASSIUM 100 MG TAB PO SCH (08:56)
[2018-12-20] MEDS: NIFEDIPINE CR 30 MG TAB PO SCH (08:56)
--- NOTE | 2018-12-20 16:56 | NUR ---
Nutrition Screen Note RD Recommendation for Physician: 1.Continue ADA diet add renal restrictions Plan of Care: RD following, monitoring for tolerance and adequacy Nutrition reason for involvement: LOS Primary Diagnose(s): CKD, Infected cath PMH: CKD 4/5? Diabetes Type 2, HTN, HLD, myelodysplastic syndrome Ht:72in Wt:168lbs BMI:22.78kg/m2 IBW:178lbs +/- 10% RD Assessment: (12/20) Chart reviewed. Labs and meds reviewed. 83 y/o hard hearing M who was admitted for an infected Port-A-Cath. Patient sitting up having lunch during time of visit, no family at bedside. Reported good appetite and intake during admission and at home. Noted some weight loss over past month, but unable to provide further details. Noted some diet education in the past and being followed by admitted attorneys. Pt denied any recent ongoing N/V/D/C, denied any difficulties with chewing/swallowing. Will continue to monitor and follow as needed. Current Diet: ADA Diet Malnutrition Evaluation (12/20) The patient does not meet criteria for a specified degree of malnutrition at this time. Will re-evaluate at follow-up as appropriate. Diet Education Needs Assessment: Diet education indicated, reviewed overall healthy eating patterns for CKD and diabetes . Learner(s): Pt Barriers: hard hearing, poor understanding Cultural/Language Modifications: none Readiness: acceptance, Method: verbal Topics: food groups, plate method Understanding/Compliance: will require reinforcement Nutrition Care Level: LOW Signed: Tara Kenney, MS, RDN, LD
--- NOTE | 2018-12-20 19:30 | NUR ---
Report given to oncoming nurse. Walking rounds done. Patient is resting in bed. No acute distress noted, no s/s of pain noted at this time. Call light within reach. Bed in the lowest position.
--- NOTE | 2018-12-20 19:38 | Progress Note ---
DATE: 12/20/2018 This is ID cross cover for Dr. Ny. SUBJECTIVE: The patient is resting comfortably in bed. He is in no acute distress. He has no respiratory, gastrointestinal, or genitourinary complaints. No adverse medication reaction reported. OBJECTIVE: VITAL SIGNS: Maximum temperature in the past 24 hours was up to 96.6 degrees Fahrenheit. He is hemodynamically stable. He has no pallor. HEENT: No icterus. No oropharyngeal lesions. NECK: Supple. CHEST: Symmetric. The left chest Port-A-Cath wound dressing is intact and clean. LUNGS: Sound fairly clear. HEART: Sounds are regular. There is no new murmur. ABDOMEN: Soft and nontender. Bowel sounds are normal. EXTREMITIES: No acute erythema of the extremities. LABORATORY DATA: His white count is 2.8, hemoglobin 9.0, and platelet count 156. Serum creatinine 5.3 from December 19 with dialysis. His blood cultures from December 15 were negative. Wound cultures from December 15 and December 18 grew methicillin-resistant Staph aureus. IMPRESSION: He had a Port-A-Cath infected with methicillin-resistant Staph aureus. It has been removed. He has end-stage renal disease. He is afebrile and stable from Infectious Disease point. I suggest continue his antibiotics and continue local wound care. MD REESE Farah/HARMAN /[id number]
--- NOTE | 2018-12-20 20:17 | NUR ---
RECEIVED PT IN BED AOX4 .DENIES PAIN .LEFT FA 20 G S/L .SKIN WARM AND DRY TO TOUCH .CALL LIGHT WITH IN REACH .CONTINUE TO MONITOR CALL LIGHT WITH IN REACH
[2018-12-20] MEDS: MIRTAZAPINE 15 MG TAB PO SCH (21:41)
[2018-12-20] MEDS: SIMVASTATIN 40 MG TAB PO SCH (21:41)
[2018-12-21] VITALS (8 sets, daily range): BP systolic 111–165; BP diastolic 62–76
--- NOTE | 2018-12-21 06:54 | NUR ---
RECEIVED PATIENT RESTING IN BED. NO ACUTE DISTRESS NOTED, RESPIRATIONS EVEN AND UNLABORED. DENIES PAIN OR DISCOMFORT. CALL LIGHT WITHIN REACH. BED IN THE LOWEST POSITION.
--- NOTE | 2018-12-21 07:28 | NUR ---
PT RESTED DURING THE NIGHT .NO ACUTE DISTRESS NOTED .REPORT GIVEN TO THE ONCOMING NURSE
[2018-12-21] MEDS: INSULIN LISPRO 100 UNIT/1 ML 3ML VIAL SQ SCH ×4 (07:30→20:54)
[2018-12-21] MEDS: ASPIRIN 81 MG CHEW TAB PO SCH (08:43)
[2018-12-21] MEDS: NIFEDIPINE CR 30 MG TAB PO SCH (08:43)
[2018-12-21] MEDS: GLIPIZIDE 5 MG TAB PO SCH (08:43)
[2018-12-21] MEDS: LOSARTAN POTASSIUM 100 MG TAB PO SCH (08:43)
[2018-12-21] MEDS: SERTRALINE HCL 100 MG TAB PO SCH (08:44)
[2018-12-21] MEDS: SODIUM CHLORIDE 0.9% IV SCH (14:30)
[2018-12-21] MEDS: DAPTOMYCIN IV SCH (14:30)
--- NOTE | 2018-12-21 17:48 | Progress Note ---
DATE: 12/21/2018 This is ID cross-cover for Dr. Ny. SUBJECTIVE: The patient is fairly stable. He is in no distress and offers no new complaints. He is tolerating the antibiotics. No pruritus or rash. No diarrhea. No other systemic complaints reported. PHYSICAL EXAMINATION: VITAL SIGNS: In the past 24 hours, he had temperatures up to 96.8 degrees Fahrenheit. He is hemodynamically stable. HEENT: He has no pallor. No icterus. No oropharyngeal lesions. NECK: Supple. CHEST: Symmetric. The left chest Port-A-Cath wound dressing is intact and clean. LUNGS: Sound clear. HEART: Sounds are regular without a new murmur. ABDOMEN: Soft. Bowel sounds are present. EXTREMITIES: There is no acute erythema of the extremities. LABORATORY DATA: White count is 2.8 from December 19, hemoglobin 9.0, platelet count 156. His serum creatinine 5.3. There are no new positive culture reports. IMPRESSION: He has had an infected Port-A-Cath removed. Cultures grew methicillin-resistant Staph aureus. Blood cultures were negative. He has end-stage renal disease. He is afebrile. He has leukopenia and anemia. I suggest continue current treatment. Continue local wound care. MD REESE Farah/JEETL /[id number]
--- NOTE | 2018-12-21 19:27 | NUR ---
REPORT GIVEN TO ONCOMING NURSE. WALKING ROUNDS DONE. PATIENT IS RESTING IN BED. NO ACUTE DISTRESS NOTED. NO S/S OF PAIN NOTED. CALL LIGHT WITHIN REACH. BED IN THE LOWEST POSITION.
[2018-12-21] MEDS: SIMVASTATIN 40 MG TAB PO SCH (20:55)
[2018-12-21] MEDS: MIRTAZAPINE 15 MG TAB PO SCH (20:55)
[2018-12-22 00:05] VITALS: BP 149/77
[2018-12-22 04:40] VITALS: BP 146/71
[2018-12-22] MEDS: INSULIN LISPRO 100 UNIT/1 ML 3ML VIAL SQ SCH ×2 (07:30→11:30)
[2018-12-22 08:11] VITALS: BP 144/70
[2018-12-22] MEDS: GLIPIZIDE 5 MG TAB PO SCH (09:18)
[2018-12-22] MEDS: ASPIRIN 81 MG CHEW TAB PO SCH (09:18)
[2018-12-22] MEDS: LOSARTAN POTASSIUM 100 MG TAB PO SCH (09:19)
[2018-12-22] MEDS: NIFEDIPINE CR 30 MG TAB PO SCH (09:21)
[2018-12-22] MEDS: SERTRALINE HCL 100 MG TAB PO SCH (09:21)
[2018-12-22 09:35] VITALS: BP 144/70
[2018-12-22 11:36] VITALS: BP 145/81
[2018-12-22] MEDS ORDERED: CHLORHEXIDINE118 ML TOP (12:15)
[2018-12-22] MEDS ORDERED: MINOCYCLINE HCL50 MG PO (12:15)
== END 2018-12-22 13:15 | disposition home or self-care (01) | DRG 981 ==
LOC: ER 09:47 → ERHOLD 11:25 → MED/SURG3 12-16 12:27
PROVIDERS: ADMIT Internal Medicine Medical Oncology; ATTEND Internal Medicine Medical Oncology
PROC: 30243N1 Transfusion of Nonautologous Red Blood Cells into Central Vein, Percutaneous Approach (ICD-10-PCS; 2018-12-17)
PROC: 0WPG03Z Removal of Infusion Device from Peritoneal Cavity, Open Approach (ICD-10-PCS; 2018-12-18)
PROC: 0JPV0WZ Removal of Totally Implantable Vascular Access Device from Upper Extremity Subcutaneous Tissue and Fascia, Open Approach (ICD-10-PCS; principal; 2018-12-18 13:01)
DX: T80.218A Other infection due to central venous catheter, initial encounter (principal); N18.6 End stage renal disease; D84.9 Immunodeficiency, unspecified; I12.0 Hypertensive chronic kidney disease with stage 5 chronic kidney disease or end stage renal disease; A49.02 Methicillin resistant Staphylococcus aureus infection, unspecified site; D46.9 Myelodysplastic syndrome, unspecified; E11.22 Type 2 diabetes mellitus with diabetic chronic kidney disease; E78.5 Hyperlipidemia, unspecified; F32.9 Major depressive disorder, single episode, unspecified; F41.9 Anxiety disorder, unspecified; Z79.899 Other long term (current) drug therapy; Z79.4 Long term (current) use of insulin
CPT/HCPCS: 36415; 71045; 80048; 80053; 81001; 82550; 82553; 82948; 83605; 83735; 84484; 85025; 85610; 85730; 86850; 86900; 86920; 87040; 87071; 87075; 87081; 87086; 87186; 87205; 99284; J1100; J2001; J2405; J2543; J3010; J3370; J7040; J7050; P9016